=== PATIENT | female | born 2000 | race Caucasian/White ===

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

== ENCOUNTER 2019-04-10 05:30 | Inpatient (IN) | payer OTHER, MEDICAID ==
[2019-04-10] VITALS (16 sets, daily range): BP systolic 111–160; BP diastolic 58–103
[~2019-04-10] VITALS: Ht 154.9 cm; Wt 69.7 kg
[~2019-04-10 05:30] MED LIST changes: +IBUP-1773 PO
--- NOTE | 2019-04-10 05:30 | NUR ---
KATHRYN BOLDEN presented to unit via wheelchair from ED, accompanied by s/o, with c/o CONTRACTIONS. KATHRYN BOLDEN weighed, gowned, voided, and to bed. EFHM and TOCO applied, VS taken. KATHRYN BOLDEN oriented to bed controls, call light, TV, heat, and A/C controls.
[2019-04-10] MEDS ORDERED: D5 LR IV SOLUTION 1,000 ML IV ONE (05:41)
[2019-04-10] MEDS ORDERED: D5 LR IV SOLUTION 1,000 ML IV SCH (05:43)
[2019-04-10] MEDS ORDERED: MINERAL OIL CONCENTRATE 99.9% 15 ML UDC TOP PRN (05:45)
--- OUTSIDE RECORDS SUMMARY | 2019-04-10 05:54 | XMS REPORT ---
Author Author NARA CASTRO Organization [facility] Address [address] [place] [address] Care Team Providers Care Volleyball Commentator Name Role Phone NARA ACSTRO Unavailable PROBLEMS Type Condition ICD9-CM Code YIG64-NE Code Onset Dates Condition Status SNOMED Code Problem Tobacco use disorder F17.200 Active 245970286 Problem Gastroesophageal reflux disease, esophagitis presence not specified K21.9 Active 249085244 Problem Mild intermittent asthma without complication J45.20 Active 324500021 Problem Generalized anxiety disorder F41.1 Active 46797009 Problem Vaginal discharge N89.8 Active 596497681 Problem Irritable mood R45.4 Active 74660693 Problem Marijuana use F12.10 Active 91638735 Problem Bipolar disorder, in partial remission, most recent episode hypomanic F31.71 Active 366772687 Problem Dysthymic disorder F34.1 Active 49558956 ALLERGIES No Known Allergies ENCOUNTERS Encounter Location Date Diagnosis [place] [address] [id number] [id number] April, Dental examination Z01.20 [facility] [address] [id number][place] [id number] Nov, [facility] [address] [id number][place] [id number] Nov, Generalized anxiety disorder F41.1 and Other mental disorders complicating the puerperium O99.345 [place] [address] [facility] [id number][place] [id number] Nov, Vaginal discharge N89.8 [place] [address] [facility] [id number][place] [id number] Nov, Irritable mood R45.4 and Bipolar disorder, in partial remission, most recent episode hypomanic F31.[address] [id number][place] [id number] Nov, [facility] [id number][place] [id number] Oct, Dysthymic disorder F34.1 and Irritable mood R45.4 [facility] [address] [place] [address]- [address] Oct, [place] [address] [place] [id number] [place] [address]56- 7026 Oct, [place] [address] [place] [id number] [place] [address] 84489- 4729 Sep, care and examination Z39.2 and Encounter for Depo -Provera contraception Z30.42 [place] [address] [place] [id number] [place] [address] 07182- 3395 Sep, [place] [address] [place] [id number] [place] [address] 20759- 2457 Aug, [place] [address] [place] [id number] [place] [address] 01971- 7531 Aug, hemorrhage, unspecified type O72.1 and Marijuana use F12.10 [place] [address] [place] [id number] [place] [address] 77840- 2795 Aug, Third trimester Z34.93 and 39 weeks gestation of Z3A.39 [facility] [id number][place] [id number] Aug, Third trimester Z34.93 ; 38 weeks gestation of Z3A.38 and High risk teen in third trimester O09.[address] [id number], [place] [id number] Jul, Normal first in second trimester Z34.02 [facility] Reina0 [facility] [id number][place] [address] Jul, Normal in third trimester Z34.93 and 36 weeks gestation of Z3A.36 [place] [id number], [place] [id number] Jul, [facility] [id number] [place] [id number] Jul, [facility] [address] [facility] [address] [id number], [place] [address] Jul, Third trimester Z34.93 ; High risk teen in third trimester O09.893 and 34 weeks gestation of Z3A.34 [facility] [address] [facility] [address] [id number], [place] [id number] Jun, Encounter for immunization Z23 ; Third trimester Z34.93 and 32 weeks gestation of Z3A.32 [facility] [id number] [place] [id number] Jun, [facility] [id number] [place] [address] [id number] April, [facility] [address] [place] [id number] [place] [address] [id number] April, Normal first in second trimester Z34.02 and 20 weeks gestation of Z3A.20 [place] [address] [place] [id number] [place] [address] 36320- 5506 Mar, Normal first in second trimester Z34.02 [facility] [address]00565100[address] [id number] Mar, [facility] [id number] [place] [address] 79128- 4413 Mar, [facility] [address] [place] [address] [id number] [place] [address] 63458- 2546 Mar, 16 weeks gestation of Z3A.16 and Normal first in second trimester Z34.02 [facility] [address] [facility] [address] [id number], [place] [id number] Jan, Normal first confirmed, first trimester Z34.01 ; Diarrhea, unspecified R19.7 and Nausea with vomiting, unspecified R11.2 [facility] [id number] [place] [address] [id number] Jan, [facility] [address] [id number], [place] [phone] Jan, [facility] [id number] [place] [address] [id number] Jan, Normal first confirmed, first trimester Z34.01 ; 13 weeks gestation of Z3A.13 ; Other specified bacterial agents as the cause of diseases classified elsewhere B96.89 ; Acute vaginitis N76.0 and Tobacco use affecting in first trimester, antepartum O99.331 [facility] [place] [address] [id number], [place] [id number] Nov, [facility] [id number] [place] [address] [id number] Sep, Generalized abdominal pain R10.84 and Intractable vomiting with nausea, unspecified vomiting type R11.2 [facility] [id number] [place] [address] [id number] Sep, [facility] [address] [id number], [place] [id number] Sep, Epigastric pain R10.13 [facility] [address] [id number], [place] [id number] Aug, Right upper quadrant abdominal pain R10.11 [facility] [address] [id number], [place] [id number] Jul, [facility] [address] [id number], [place] [id number] Jun, Diarrhea, unspecified R19.7 and Nausea with vomiting, unspecified R11.2 [facility] [address] [id number], [place] [id number] May, Epigastric pain R10.13 [facility] [address] [id number] [place] [address] [id number] May, Epigastric pain R10.13 [facility] [place] [id number] [place] [address] [id number] May, Epigastric pain R10.13 and Heart palpitations R00.2 [facility] [address] [id number], [place] [id number] April, [address] [place] [address] [phone] April, Fatigue R53.83 and Epigastric pain R10.13 [address] [place] [address] [id number] 17 Jan, 2016 GE (gastroenteritis) K52.9 and Acute upper respiratory infection, unspecified J06.9 [place] [id number] [place] [address] [id number] Jan, Sore throat J02.9 and Fever R50.9 [place] [id number] [place] [address] [id number] Dec, Encounter for initial prescription of contraceptive pills Z30.011 [place] [id number] [place] [address] [id number] Nov, Wheezing R06.2 ; Coughing R05 ; Spasmodic cough R05 ; Fever R50.9 and Post -nasal drip R09.[id number] [place] [id number] Oct, Nausea R11.0 ; Vomiting R11.10 and Fever R50.9 [place] [id number] [place] [address] [id number] Oct, Laryngitis J04.0 ; Encounter for immunization Z23 and Cough R05 [place] [id number] [place] [address] [id number] Sep, Encounter for immunization Z23 ; Sinusitis, acute frontal J01.10 and Acute laryngitis J04.[id number] [place] [address] [id number] Jul, Sore throat 462 ; Fever 780.60 and Cough 786.2 [address] [place] [address] [id number] Jun, GARDASIL (HPV) DX V04.89 [place] [id number] [place] [address] [id number] May, Esophageal reflux 530.81 and GARDASIL (HPV) DX V04.89 [facility] [place] [address] [facility] [address] [id number], [place] [id number] April, Pharyngitis 462 and Bronchitis 490 [facility] [address] [facility] [id number], [place] [address]- [address] Mar, [facility] [address] [facility] [id number], [place] [address]- [address]68 Mar, [facility] [address] [facility] [id number], [place] [address]- 8100 Sep, [facility] [address] [facility] [id number], [place] [address]- 5944 Sep, [facility] [address] [place] [id number], [place] [address]- [address]24 Jun, [facility] [address] [place] [address] [id number], [place] [address]- 6347 Jun, [facility] [address] [place] [address] [id number], [place] [address]- 5809 April, [facility] [address] [id number], [place] [address]- 7771 April, [facility] [address] [place] [address] [id number], [place] [address]- 4856 Aug, [facility] [address] [facility] [id number], [place] [address]- 8258 Aug, [facility] [address] [place] [address] [id number], [place] [address]- [address]20 19 Aug, 2013 [facility] [address] [id number], [place] [address]- 94[address] 07 Aug, 2013 [facility] [address] [place] [address] [id number], [place] [address]- 9553 Jul, [facility] [address] [id number], [place] [address]- 7111 Mar, [facility] [address] [facility] [id number] [place] [address]- 2546 Mar, [facility] [address] [id number], [place] [address]- [address] Dec, [facility] [address] [id number], [place] [address]- 2546 Oct, [facility] [address] [id number], [place] [address]- 2546 Oct, [facility] [address] [facility] [id number], [place] [address]- 2546 Jul, [facility] [address]00565100[place], [place] [address] May, IMMUNIZATIONS Vaccine Route Administration Date Status DEPO PROVERA (150 MG/ML) IM Intramuscular Sep 30, 2017 Administered SOCIAL HISTORY Never Assessed REASON FOR VISIT 6 week post fu--[facility] PLAN OF CARE Activity Details Follow Up 1 Year with Ambrose COPELAND Reason: VITAL SIGNS Height 62 in 2017-09-30 Weight 136.5 lbs 2017-09-30 Temperature 98.1 degrees Fahrenheit 2017-09-30 Heart Rate 76 bpm 2017-09-30 Respiratory Rate 18 2017-09-30 BMI 24.96 kg/m2 2017-09-30 Blood pressure systolic 118 mmHg 2017-09-30 Blood pressure diastolic 82 mmHg 2017-09-30 MEDICATIONS Medication Instructions Dosage Frequency Start Date End Date Duration Status - Orally Once a day 1 tablet 24h Not-Taking RESULTS Name Result Date Reference Range TEST, URINE (IN HOUSE) 2017-09-30 RESULTS negative Lot # [id number] Control + Exp date 01/01/19 PROCEDURES Procedure Date Ordered Result Body Site URINE TEST Sep 30, 2017 DEPO PROVERA (150 MG/ML) Sep 30, 2017 THER/PROPH/DIAG INJ, SC/IM Sep 30, 2017 INSTRUCTIONS MEDICATIONS ADMINISTERED No Known Medications MEDICAL (GENERAL) HISTORY Type Description Date Medical History Esophageal reflux Medical History Asthma Medical History Chronic Constipation Medical History Lactose Intolerance Medical History Hematologic Disorder High Platelets Medical History [place] Medical History Bronchitis Medical History Anemia Medical History Hives Surgical History cholecystectomy ([facility]) 08/21/16 Hospitalization History childbirth
--- OUTSIDE RECORDS SUMMARY | 2019-04-10 05:54 | XMS REPORT ---
Author Author Migration, Doctor Organization [facility] Address Unknown Phone Unavailable Care Team Providers Care Certified Medicine Aide Name Role Phone Migration, Doctor Unavailable Unavailable PROBLEMS Type Condition ICD9-CM Code TSY96-PC Code Onset Dates Condition Status SNOMED Code Problem Marijuana use F12.10 Active 97905297 Problem Irritable mood R45.4 Active 37242404 Problem Dysthymic disorder F34.1 Active 69460225 Problem Tobacco use disorder F17.200 Active 811943748 Problem Lumbago with sciatica, right side M54.41 Active 448382374805617 Problem Gastroesophageal reflux disease, esophagitis presence not specified K21.9 Active 659803256 Problem Other chronic pain G89.29 Active 95775147 Problem Mild intermittent asthma without complication J45.20 Active 471877774 Problem Bipolar disorder, in partial remission, most recent episode hypomanic F31.71 Active 233733697 Problem Vaginal discharge N89.8 Active 389584305 Problem Generalized anxiety disorder F41.1 Active 23758857 Problem Lumbago with sciatica, left side M54.42 Active 843978205 ALLERGIES No Information ENCOUNTERS Encounter Location Date Diagnosis [address] [address] Mar, [address] [address] Jan, Supervision of other normal Z34.80 ; 34 weeks gestation of Z3A.34 and Spontaneous ecchymoses R23.[address] [address] Jan, Supervision of other normal Z34.80 ; 31 weeks gestation of Z3A.31 ; Other chronic pain G89.29 ; Lumbago with sciatica, right side M54.41 and Lumbago with sciatica, left side M54.[address] [address] Jan, Supervision of other normal Z34.80 and Encounter [facility]23 [facility] [address] [place] [address] 08 Jan, 2019 Supervision of other normal Z34.80 ; Low lying placenta NOS or without hemorrhage, second trimester O44.42 and 27 weeks gestation of Z3A.27 [facility] [address] [place] [address] 08 Jan, 2019 Supervision of other normal Z34.80 ; 27 weeks gestation of Z3A.27 and Low lying placenta NOS or without hemorrhage, second trimester O44.42 [facility] [id number] [place] [address] Dec, [address] [place] [phone] Nov, [facility] [address] [id number][place] [id number] April, Dental examination Z01.20 [facility] [address] [place] [id number] Nov, [facility] [address] [id number][place] [id number] Nov, Generalized anxiety disorder F41.1 and Other mental disorders complicating the puerperium O99.345 [facility] [address] [id number][place] [id number] Nov, Vaginal discharge N89.8 [facility] [id number] [place] [id number] Nov, Irritable mood R45.4 and Bipolar disorder, in partial remission, most recent episode hypomanic F31.71 [facility] [address] [address] [id number][place] [id number] Nov, [facility] [address] [id number][place] [id number] Oct, Dysthymic disorder F34.1 and Irritable mood R45.4 [facility] [id number] [place] [address] Oct, [facility] [id number] [address] Oct, [facility] [id number] [place] [address] Sep, care and examination Z39.2 and Encounter for Depo -Provera contraception Z30.42 [facility] [id number] [place] [address] Sep, [facility] [id number] [place] [address] Aug, [facility] [id number] [place] [address] Aug, hemorrhage, unspecified type O72.1 and Marijuana use F12.10 [facility] [id number] [place] [address] Aug, Third trimester Z34.93 and 39 weeks gestation of Z3A.39 [place] [address] [facility] [id number][place] [id number] Aug, Third trimester Z34.93 ; 38 weeks gestation of Z3A.38 and High risk teen in third trimester O09.893 [facility] [address] [id number][place] [id number] Jul, Normal first in second trimester Z34.02 [facility] [address] [id number][place] [id number] Jul, Normal in third trimester Z34.93 and 36 weeks gestation of Z3A.36 [facility] [address] [id number] [id number] Jul, [facility] [address] [id number] Jul, [facility] [address] [id number], [place] [id number] Jul, Third trimester Z34.93 ; High risk teen in third trimester O09.893 and 34 weeks gestation of Z3A.34 [facility] [address] [facility] [id number][place] [id number] Jun, Encounter for immunization Z23 ; Third trimester Z34.93 and 32 weeks gestation of Z3A.32 [facility] [id number][place] [id number] Jun, [facility] [id number] [place] [id number] April, [facility] [id number] [place] [id number] April, Normal first in second trimester Z34.02 and 20 weeks gestation of Z3A.20 [facility] [address] [address] Mar, Normal first in second trimester Z34.02 [facility] [address] [place] [id number] Mar, [facility] [id number] [place] [address] Mar, [facility] [id number] [place] [address] Mar, 16 weeks gestation of Z3A.16 and Normal first in second trimester Z34.02 [facility] [address] [id number], [place] [id number] Jan, Normal first confirmed, first trimester Z34.01 ; Diarrhea, unspecified R19.7 and Nausea with vomiting, unspecified R11.2 [facility] [id number], [place] [id number] Jan, [facility] [address] [id number] Jan, [facility] [address]100[place] [id number] Jan, Normal first confirmed, first trimester Z34.01 ; 13 weeks gestation of Z3A.13 ; Other specified bacterial agents as the cause of diseases classified elsewhere B96.89 ; Acute vaginitis N76.0 and Tobacco use affecting in first trimester, antepartum O99.331 [facility] [id number] [place] [id number] Nov, [facility] [id number] [place] [address] [id number] Sep, Generalized abdominal pain R10.84 and Intractable vomiting with nausea, unspecified vomiting type R11.2 [facility] [id number] [place] [address] [id number] Sep, [facility] [id number] [place] [address] [id number] Sep, Epigastric pain R10.13 [facility] [id number] [place] [address] [id number] Aug, Right upper quadrant abdominal pain R10.[address] [id number], [place] [id number] Jul, [facility] [id number] [place] [address] [id number] Jun, Diarrhea, unspecified R19.7 and Nausea with vomiting, unspecified R11.2 [facility] [id number] [place] [address] [id number] May, Epigastric pain R10.13 [facility] [id number] [place] [address] [id number] May, Epigastric pain R10.13 [facility] [id number] [place] [address] [id number] May, Epigastric pain R10.13 and Heart palpitations R00.2 [facility] [id number] [place] [address] [id number] April, [facility] [id number] [place] [address] [phone] April, Fatigue R53.83 and Epigastric pain R10.13 [facility] [id number] [place] [address] [id number] Jan, GE (gastroenteritis) K52.9 and Acute upper respiratory infection, unspecified J06.[address] [place] [address] [id number] Jan, Sore throat J02.9 and Fever R50.9 [id number] [place] [address] [id number] Dec, Encounter for initial prescription of contraceptive pills Z30.011 [id number] [place] [address] [id number] Nov, Wheezing R06.2 ; Coughing R05 ; Spasmodic cough R05 ; Fever R50.9 and Post -nasal drip R09.[id number] [place] [address] [id number] Oct, Nausea R11.0 ; Vomiting R11.10 and Fever R50.9 [id number] [place] [address] [id number] Oct, Laryngitis J04.0 ; Encounter for immunization Z23 and Cough R05 [id number] [place] [address] [id number] Sep, Encounter for immunization Z23 ; Sinusitis, acute frontal J01.10 and Acute laryngitis J04.[id number] [place] [address] [id number] Jul, Sore throat 462 ; Fever 780.60 and Cough 786.[address] [place] [address] [id number] Jun, GARDASIL (HPV) DX V04.89 [id number] [place] [address] [id number] May, Esophageal reflux 530.81 and GARDASIL (HPV) DX V04.[id number] [place] [address] [id number] April, Pharyngitis 462 and Bronchitis 490 [facility] [id number] [place] [address] [id number] Mar, [facility] [address] [address] [place] [place] [address] Mar, [facility] [address] [id number] [place] [address] Sep, [facility] [place] [facility] [address] [id number] [place] [address] Sep, [facility] [address] [id number] [place] [address] Jun, [facility] [place] [facility] [address] [id number] [place] [address]- [address] Jun, [facility] [address] [id number] [place] [address] April, [facility] [place] [facility] [address] [id number] [place] [address] April, [facility] [address] [id number] [place] [address] Aug, [facility] [address] [id number] [place] [address] Aug, [facility] [place] [facility] [address] [id number] [place] [address] Aug, [facility] [place] [facility] [address] [id number] [place] [address] 07 Aug, 2013 [facility] [place] [facility] [address] [id number] [place] [address] Jul, [facility] [place] [facility] [address] [id number] [place] [address] Mar, [facility] [place] [facility] [address] [id number] [place] [address]- [address] Mar, [facility] [place] [facility] [address] [id number] [place] [address]- [address] Dec, [facility] [place] [facility] [address] [id number] [place] [address] Oct, [facility] [address] [facility] [id number] [place] [address] Oct, [facility] [address] [facility] [id number], [place] [address] Jul, [facility] [address] [facility] [id number] [place] [address] May, IMMUNIZATIONS No Known Immunizations SOCIAL HISTORY Never Assessed REASON FOR VISIT [facility] [place] [place] PLAN OF CARE VITAL SIGNS MEDICATIONS Medication Instructions Dosage Frequency Start Date End Date Duration Status Flonase 50 mcg/actuation 1 sprays by Nasal route 2 times per day in each nostril Sep, Active Zithromax Z-[place] 250 mg 2 tablet by Oral route 1 time per day for 1 days then take 1 tab daily on days 2-5 Sep, Active Albuterol Sulfate 2.5 mg /3 mL (0.083 %) 1 Each by Inhalation route every 4 hours for cough and wheeze for 7 days for wheezing or cough Jun, Active Bactrim DS 800-160 mg 1 tablet by Oral route 2 times per day for 10 day(s) Aug, Active Azithromycin 250 mg 2 Tablet by Oral route on day 1 then take 1 daily for 4 days Jun, Active Polytrim 0.1-10,000 %-unit/mL instill 2 drops into right eye by ophthalmic route every 4-6 hours for 7 day(s) Jul, Active Nitrofurantoin Macrocrystal 100 mg 1 capsule by Oral route 2 times per day for 10 day(s) Aug, Active Zantac 300 mg 1 tablet by Oral route 1 time per day at bedtime Aug, Active Pyridium 200 mg 1 tablet by Oral route 3 times per day for 3 day(s) Take iNEWiTih meals for bladder pain Aug, Active cetirizine 10 mg 1 tablet by Oral route 1 daily Sep, Active Albuterol Sulfate 90 mcg/actuation 2 puffs by Inhalation route every 4-6 hours as needed PRN cough or wheezing Jul, Active RESULTS No Results PROCEDURES No Known procedures INSTRUCTIONS MEDICATIONS ADMINISTERED No Known Medications MEDICAL (GENERAL) HISTORY Type Description Date Medical History Esophageal reflux Medical History Asthma Medical History Chronic Constipation Medical History Lactose Intolerance Medical History Hematologic Disorder High Plate[place] Medical History [place] Medical History Bronchitis Medical History Anemia Medical History Hives Medical History neuropathy Surgical History cholecystectomy ([facility]) 08/21/16 Hospitalization History childbirth
--- OUTSIDE RECORDS SUMMARY | 2019-04-10 05:54 | XMS REPORT ---
Author Author NARA CASTRO Organization [facility] Address [address] [place] [address] Care Team Providers Care Prescriptionist Name Role Phone NARA CASTRO Unavailable PROBLEMS Type Condition ICD9-CM Code GEL23-WB Code Onset Dates Condition Status SNOMED Code Problem Tobacco use disorder F17.200 Active 977662119 Problem Gastroesophageal reflux disease, esophagitis presence not specified K21.9 Active 327843779 Problem Mild intermittent asthma without complication J45.20 Active 507381568 Problem Generalized anxiety disorder F41.1 Active 15349626 Problem Vaginal discharge N89.8 Active 176780456 Problem Irritable mood R45.4 Active 47768572 Problem Marijuana use F12.10 Active 04884947 Problem Bipolar disorder, in partial remission, most recent episode hypomanic F31.71 Active 411447796 Problem Dysthymic disorder F34.1 Active 14175492 ALLERGIES No Known Allergies ENCOUNTERS Encounter Location Date Diagnosis [facility] [address] [facility] [id number] [place] [id number] Nov, [facility] [address] [id number] [place] [id number] Nov, Generalized anxiety disorder F41.1 and Other mental disorders complicating the puerperium O99.345 [facility] [address] [facility] [id number] [place]AV[place] [id number] Nov, Vaginal discharge N89.8 [facility] [place] [address] [facility] [id number] HAVEN[place] [id number] Nov, Irritable mood R45.4 and Bipolar disorder, in partial remission, most recent episode hypomanic F31.71 [facility] [address] [facility] [id number] [place] [id number] Nov, [facility] [place] [address] [facility] [id number] [place]AV[place] [phone] Oct, Dysthymic disorder F34.1 and Irritable mood R45.4 [place] [address] [place] [address] [id number] [place] [address] 91300- 9261 Oct, [facility] [id number] [place] [address] 11466- 9654 Oct, [place] [address] [place] [id number] [place] [address] 50786- 3129 Sep, care and examination Z39.2 and Encounter for Depo -Provera contraception Z30.42 [place] [address] [place] [id number] [place] [address] 07758- 0821 Sep, [place] [address] [place] [id number] [place] [address] 55607- 6873 Aug, [place] [address] [place] [id number] [place] [address] 92841- 6024 Aug, hemorrhage, unspecified type O72.1 and Marijuana use F12.10 [place] [address] [place] [id number] [place] [address] 13258- 9731 Aug, Third trimester Z34.93 and 39 weeks gestation of Z3A.[address] [id number] [place] [address]231487 Aug, Third trimester Z34.93 ; 38 weeks gestation of Z3A.38 and High risk teen in third trimester O09.[address] [id number] [place] [id number] Jul, Normal first in second trimester Z34.[address] [id number] [place]AV[place] [id number] Jul, Normal in third trimester Z34.93 and 36 weeks gestation of Z3A.36 [facility] [address]00565100[place] [id number] Jul, [facility] [address] [id number] [id number] Jul, [facility] [place] [address] [facility] [address] [id number] [place]AV[place] [id number] Jul, Third trimester Z34.93 ; High risk teen in third trimester O09.893 and 34 weeks gestation of Z3A.[address] [facility] [address] [id number] [place] [id number] Jun, Encounter for immunization Z23 ; Third trimester Z34.93 and 32 weeks gestation of Z3A.32 [facility] [address] [id number] [place] [id number] Jun, [facility] [address] [id number] [place] [id number] April, [facility] [place] [address] [place] [address] [id number] [place] [id number] April, Normal first in second trimester Z34.02 and 20 weeks gestation of Z3A.20 [facility] [address]00565100[place] [address] Mar, Normal first in second trimester Z34.02 [facility] [place] [id number] [place] [id number] Mar, [facility] [address]00565100[place] [address]- [address]84 Mar, [facility] [address]00565100[place] 651433[address] 9979 Mar, 16 weeks gestation of Z3A.16 and Normal first in second trimester Z34.02 [facility] [place] [address] [facility] [address] [id number] [place] [id number] Jan, Normal first confirmed, first trimester Z34.01 ; Diarrhea, unspecified R19.7 and Nausea with vomiting, unspecified R11.2 [facility] [address] [id number] [place] [id number] Jan, [facility] [id number] RIVER, [place] [id number] Jan, [facility] [id number] [place] [id number] Jan, Normal first confirmed, first trimester Z34.01 ; 13 weeks gestation of Z3A.13 ; Other specified bacterial agents as the cause of diseases classified elsewhere B96.89 ; Acute vaginitis N76.0 and Tobacco use affecting in first trimester, antepartum O99.331 [facility] [id number] [place] [address] [id number] Nov, [facility] [id number] [place] [address] [id number] Sep, Generalized abdominal pain R10.84 and Intractable vomiting with nausea, unspecified vomiting type R11.2 [facility] [id number] [place] [address] [id number] Sep, [facility] [id number] [place] [address] [id number] Sep, Epigastric pain R10.13 [facility] [id number] [place] [address] [id number] Aug, Right upper quadrant abdominal pain R10.11 [place] [address] [facility] [id number] [place] 039594522 Jul, [facility] [id number] [place] [address] [id number] Jun, Diarrhea, unspecified R19.7 and Nausea with vomiting, unspecified R11.2 [facility] [id number] [place] [address] [id number] May, Epigastric pain R10.13 [facility] [id number] [place] [address] [id number] May, Epigastric pain R10.13 [facility] [id number] [place] [address] [id number] May, Epigastric pain R10.13 and Heart palpitations R00.2 [facility] [id number] [place] [address] [id number] April, [facility] [address] [id number] [place] [address] [id number] April, Fatigue R53.83 and Epigastric pain R10.13 [address]00565100[place] [id number] 17 Jan, 2016 GE (gastroenteritis) K52.9 and Acute upper respiratory infection, unspecified J06.9 [place] [id number] [place] [address] [id number] Jan, Sore throat J02.9 and Fever R50.9 [place] [id number] [place] [address] [id number] Dec, Encounter for initial prescription of contraceptive pills Z30.011 [place] [id number] [place] [address] [id number] Nov, Wheezing R06.2 ; Coughing R05 ; Spasmodic cough R05 ; Fever R50.9 and Post -nasal drip R09.[address] [id number] [place] [id number] Oct, Nausea R11.0 ; Vomiting R11.10 and Fever R50.9 [address] [place] [address] [id number] Oct, Laryngitis J04.0 ; Encounter for immunization Z23 and Cough R05 [place] [id number] [place] [address] [id number] Sep, Encounter for immunization Z23 ; Sinusitis, acute frontal J01.10 and Acute laryngitis J04.[address] [id number] [place] [id number] Jul, Sore throat 462 ; Fever 780.60 and Cough 786.[address] [place] [address] [id number] Jun, GARDASIL (HPV) DX V04.89 [address] [place] [address] [id number] May, Esophageal reflux 530.81 and GARDASIL (HPV) DX V04.[id number] [place] [address] [id number] April, Pharyngitis 462 and Bronchitis 490 [facility] [address] [id number] [place] [address]- 7948 14 Mar, 2015 [facility] [address] [id number] [place] [address]- 3498 Mar, [facility] [address] [id number] [place] [address]- 3546 Sep, [facility] [place] [facility] [address] [id number] [place] [address]- 3744 Sep, [facility] [address] [id number] [place] [address]- 1008 Jun, [facility] [place] [facility] [address] [id number] [place] [address]- 3850 Jun, [facility] [address] [id number] [place] [address]- 0021 April, [facility] [place] [facility] [address] [id number] [place] [address]- 6329 April, [facility] [address] [id number] [place] [address]- 1668 Aug, [facility] [place] [facility] [address] [id number] [place] [address]- 0446 Aug, [facility] [address] [id number] [place] [address]- 1528 Aug, [facility] [place] [facility] [address] [id number] [place] [address]- 3939 07 Aug, 2013 [facility] [place] [facility] [address] [id number] [place] [address]- 9430 Jul, [facility] [place] [facility] [address] [id number] [place] [address]- 4572 Mar, [facility] [place] [facility] [address] [id number] [place] [address]- 1321 08 Mar, 2013 [facility] [place] [facility] [address] [facility] [id number] [place] [address] 2546 Dec, [facility] [address] [facility] [id number], [place] [address]- 4764 Oct, [facility] [address] [facility] [id number], [place] [address] 2546 Oct, [facility] [address] [facility] [id number] [address]- 2542 Jul, [facility] [address] [facility] [id number][place] [address]- 0605 May, IMMUNIZATIONS No Known Immunizations SOCIAL HISTORY Never Assessed REASON FOR VISIT OB f/u Ghanshyam BANKS PLAN OF CARE Activity Details Follow Up 1 Week Reason: VITAL SIGNS Height 62 in 2017-08-07 Weight 154.8 lbs 2017-08-07 Heart Rate 88 bpm 2017-08-07 Respiratory Rate 18 2017-08-07 BMI 28.313 kg/m2 2017-08-07 Blood pressure systolic 112 mmHg 2017-08-07 Blood pressure diastolic 68 mmHg 2017-08-07 MEDICATIONS Medication Instructions Dosage Frequency Start Date End Date Duration Status - Orally Once a day 1 tablet 24h Active RESULTS No Results PROCEDURES No Known procedures INSTRUCTIONS MEDICATIONS ADMINISTERED No Known Medications MEDICAL (GENERAL) HISTORY Type Description Date Medical History Esophageal reflux Medical History Asthma Medical History Chronic Constipation Medical History Lactose Intolerance Medical History Hematologic Disorder High Platelets Surgical History cholecystectomy ([facility]) 08/21/16 Hospitalization History childbirth
--- OUTSIDE RECORDS SUMMARY | 2019-04-10 05:54 | XMS REPORT ---
Author Author EMILIANO Wilcox [facility] Address [address] [place] [address] Care Team Providers Care Tilt Tray Driver Name Role Phone EMILIANO Wilcox Unavailable PROBLEMS Type Condition ICD9-CM Code TGX41-UE Code Onset Dates Condition Status SNOMED Code Problem Tobacco use disorder F17.200 Active 902426761 Problem Gastroesophageal reflux disease, esophagitis presence not specified K21.9 Active 491636287 Problem Mild intermittent asthma without complication J45.20 Active 466210875 Problem Generalized anxiety disorder F41.1 Active 92234722 Problem Vaginal discharge N89.8 Active 311242211 Problem Irritable mood R45.4 Active 51190250 Problem Marijuana use F12.10 Active 00695285 Problem Bipolar disorder, in partial remission, most recent episode hypomanic F31.71 Active 870140860 Problem Dysthymic disorder F34.1 Active 20702329 ALLERGIES No Known Allergies ENCOUNTERS Encounter Location Date Diagnosis [id number] [place] [address] [id number] April, Dental examination Z01.20 [facility] [address] [id number], [place] [id number] Nov, [address] [id number], [place] [id number] Nov, Generalized anxiety disorder F41.1 and Other mental disorders complicating the puerperium O99.[address] [id number] [place] [address] [id number] Nov, Vaginal discharge N89.[address] [id number], [place] [id number] Nov, Irritable mood R45.4 and Bipolar disorder, in partial remission, most recent episode hypomanic F31.[address] [id number], [place] [id number] Nov, [address] [id number], [place] [id number] Oct, Dysthymic disorder F34.1 and Irritable mood R45.4 [facility] [address]00565100[place] [address]- 3260 Oct, [facility] [id number] [place] [address] 04969- 0120 Oct, [facility] [address] [id number] [place] [address] 05297- 1869 Sep, care and examination Z39.2 and Encounter for Depo -Provera contraception Z30.42 [place] [id number] [place] [address] 80698- 5780 Sep, [place] [address] [id number] [place] [address] 88379- 6990 Aug, [place] [address] [id number] [place] [address] 22724- 5359 Aug, hemorrhage, unspecified type O72.1 and Marijuana use F12.10 [place] [address]00565100[place], [place] [address]- 0783 Aug, Third trimester Z34.93 and 39 weeks gestation of Z3A.[address] [id number], [place] [id number] Aug, Third trimester Z34.93 ; 38 weeks gestation of Z3A.38 and High risk teen in third trimester O09.[address] [id number], [place] [id number] Jul, Normal first in second trimester Z34.[address] [id number], [place] [id number] Jul, Normal in third trimester Z34.93 and 36 weeks gestation of Z3A.36 [facility] [address] [facility] [place] [id number], [place] [id number] Jul, [facility] [id number] [place] [address] [id number] Jul, [facility] [address] [facility] [address] [id number], [place] [id number] Jul, Third trimester Z34.93 ; High risk teen in third trimester O09.893 and 34 weeks gestation of Z3A.34 [facility] [address] [facility] [address] [id number], [place] [id number] Jun, Encounter for immunization Z23 ; Third trimester Z34.93 and 32 weeks gestation of Z3A.32 [facility] [id number], [place] [id number] Jun, [facility] [address] [place] [address] [id number] April, [facility] [place] [address] [id number] [place] [address] [id number] April, Normal first in second trimester Z34.02 and 20 weeks gestation of Z3A.20 [place] [id number] [place] [address] 11014- 5446 Mar, Normal first in second trimester Z34.02 [facility] [place]00565100[place], [place] [id number] Mar, [facility] [id number] [place] [address] 71587- 3846 Mar, [facility] [id number] [place] [address] 23263- 2546 Mar, 16 weeks gestation of Z3A.16 and Normal first in second trimester Z34.02 [facility] [address] [facility] [address] [id number], [place] [id number] Jan, Normal first confirmed, first trimester Z34.01 ; Diarrhea, unspecified R19.7 and Nausea with vomiting, unspecified R11.2 [facility] [address] [place] [address] [id number], [place] [id number] Jan, [facility] [address] [id number], [place] [id number] Jan, [facility] [place] [id number], [place] [id number] Jan, Normal first confirmed, first trimester Z34.01 ; 13 weeks gestation of Z3A.13 ; Other specified bacterial agents as the cause of diseases classified elsewhere B96.89 ; Acute vaginitis N76.0 and Tobacco use affecting in first trimester, antepartum O99.331 [facility] [place] [address] [id number], [place] [id number] Nov, [facility] [place] [id number] [place] [address] [id number] Sep, Generalized abdominal pain R10.84 and Intractable vomiting with nausea, unspecified vomiting type R11.2 [facility] [id number], [place] [id number] Sep, [facility] [id number], [place] [id number] Sep, Epigastric pain R10.13 [facility] [id number], [place] [id number] Aug, Right upper quadrant abdominal pain R10.11 [facility] [address] [id number], [place] [id number] Jul, [facility] [address] [facility] [place] [id number], [place] [id number] Jun, Diarrhea, unspecified R19.7 and Nausea with vomiting, unspecified R11.2 [facility] [address] [id number], [place] [id number] May, Epigastric pain R10.13 [facility] [address] [id number], [place] [id number] May, Epigastric pain R10.13 [facility] [address] [id number], [place] [id number] May, Epigastric pain R10.13 and Heart palpitations R00.2 [facility] [place]00565100[place], [place] [id number] April, [place] [id number] [place] [address] [id number] April, Fatigue R53.83 and Epigastric pain R10.13 [place] [id number] [place] [address] [id number] Jan, GE (gastroenteritis) K52.9 and Acute upper respiratory infection, unspecified J06.9 [place] [id number] [place] [address] [id number] Jan, Sore throat J02.9 and Fever R50.9 [place] [id number] [place] [address] [id number] Dec, Encounter for initial prescription of contraceptive pills Z30.011 [place] [id number] [place] [address] [id number] Nov, Wheezing R06.2 ; Coughing R05 ; Spasmodic cough R05 ; Fever R50.9 and Post -nasal drip R09.[id number] [place] [address] [id number] Oct, Nausea R11.0 ; Vomiting R11.10 and Fever R50.[address] [place] [address] [id number] Oct, Laryngitis J04.0 ; Encounter for immunization Z23 and Cough R05 [place] [id number] [place] [address] [id number] Sep, Encounter for immunization Z23 ; Sinusitis, acute frontal J01.10 and Acute laryngitis J04.[id number] [place] [address] [id number] Jul, Sore throat 462 ; Fever 780.60 and Cough 786.[address] [place] [address] [id number] Jun, GARDASIL (HPV) DX V04.89 [place] [id number] [place] [address] [id number] 02 Andrés, 2015 Esophageal reflux 530.81 and GARDASIL (HPV) DX V04.[address] [facility] [place] [address] [facility] [address] [id number], [place] [id number] April, Pharyngitis 462 and Bronchitis 490 [facility] [address] [facility] [id number][place] [address]- 2755 Mar, [facility] [address] [facility] [id number] [place] [address] 30360- 5253 Mar, [facility] [address] [facility] [id number][place] [address]- 0375 Sep, [facility] [address] [facility] [id number] [place] [address] 20242- 1619 Sep, [facility] [address] [id number] [address]- 8064 Jun, [facility] [id number] [place] [address] 41515- 4069 Jun, [facility] [address] [id number] [address]- 8544 April, [facility] [address] [place] [address] 79758- 1877 April, [facility] [address] [id number], [place] [address]- 7638 Aug, [facility] [address]00565100[place], [place] [address]- 8503 22 Aug, 2013 [facility] [address] [id number], [place] [address]- 2477 19 Aug, 2013 [facility] [address]00565100[place], [place] [address]- 4064 07 Aug, 2013 [facility] [address] [id number], [place] [address]- 4759 Jul, [facility] [address] [id number], [place] [address]- 5750 Mar, [facility] [address] [facility] [id number][place] [address]- 2546 Mar, [facility] [address] [facility] [id number][place] [address]- 2546 Dec, [facility] [address] [facility] [id number][place] [address]- 2546 Oct, [facility] [address] [id number] [address]- 2546 Oct, [facility] [address] [facility] [id number][place] [address]- 2546 Jul, [facility] [address] [id number] [address] 2546 May, IMMUNIZATIONS No Known Immunizations SOCIAL HISTORY Never Assessed REASON FOR VISIT pain PLAN OF CARE Activity Details Follow Up 1 Week Reason:1 hour restorative 4 &5 VITAL SIGNS Height 62 in 2018-04-10 Blood pressure systolic 120 mmHg 2018-04-10 Blood pressure diastolic 71 mmHg 2018-04-10 MEDICATIONS Medication Instructions Dosage Frequency Start Date End Date Duration Status Clonazepam 0.5 MG Orally twice a day 1/2 tablet 12h 15 Nov, 2017 30 days Not-Taking Zoloft 25 MG Orally Once a day 1 tablet 24h 08 Oct, 2017 30 day(s) Not -Taking - Orally Once a day 1 tablet 24h Not-Taking RESULTS No Results PROCEDURES Procedure Date Ordered Result Body Site LTD ORAL EVALUATION - PROBLEM FOCUS April 10, 2018 INTRAORL-PERIAPICAL 1 FILM [id number] April 10, 2018 BITEWING - SINGLE FILM April 10, 2018 INSTRUCTIONS MEDICATIONS ADMINISTERED No Known Medications MEDICAL (GENERAL) HISTORY Type Description Date Medical History Esophageal reflux Medical History Asthma Medical History Chronic Constipation Medical History Lactose Intolerance Medical History Hematologic Disorder High Platelets Medical History [place] Medical History Bronchitis Medical History Anemia Medical History Hives Surgical History cholecystectomy ([facility]) 08/21/16 Hospitalization History childbirth
--- OUTSIDE RECORDS SUMMARY | 2019-04-10 05:55 | XMS REPORT ---
Author Author STEVEN STERN [facility] Address [address] [place] [address] Care Team Providers Care Sales Support Advisor Name Role Phone STEVEN STERN Unavailable PROBLEMS Type Condition ICD9-CM Code [id number] Code Onset Dates Condition Status SNOMED Code Problem Marijuana use F12.10 Active 48494285 Problem Gastroesophageal reflux disease, esophagitis presence not specified K21.9 Active 485944592 Problem Mild intermittent asthma without complication J45.20 Active 956306549 Problem Tobacco use disorder F17.200 Active 815337032 ALLERGIES No Known Allergies SOCIAL HISTORY Never Assessed PLAN OF CARE Activity Details Follow Up 4 Weeks w/ Dr. Castillo Reason:ob VITAL SIGNS Height 62 in 2017-02-11 Weight 131.6 lbs 2017-02-11 Heart Rate 72 bpm 2017-02-11 Respiratory Rate 16 2017-02-11 BMI 24.07 kg/m2 2017-02-11 Blood pressure systolic 110 mmHg 2017-02-11 Blood pressure diastolic 68 mmHg 2017-02-11 MEDICATIONS Medication Instructions Dosage Frequency Start Date End Date Duration Status Metronidazole 250 MG Orally Twice a day 1 tablet 12h 13 Jan, 2017 Jan, 07 days Active RESULTS Name Result Date Reference Range TSH () 2017-02-11 TSH 2.120 0.450-4.500 HIV ANTIGEN/ANTIBODY 2017-02-11 HIV Screen 4th Generation wRfx Non Reactive Non Reactive CBC 2017-02-11 WBC 12.7 3.4-10.8 RBC 4.07 3.77-5.28 Hemoglobin 12.7 11.1-15.9 Hematocrit 37.2 34.0-46.6 MCV 91 79-97 MCH 31.2 26.6-33.0 MCHC 34.1 31.5-35.7 RDW 13.1 12.3-15.4 Platelets 430 150-379 Neutrophils 69 Lymphs 21 Monocytes 7 Eos 3 Basos 0 Immature Cells Neutrophils (Absolute) 8.8 1.4-7.0 Lymphs (Absolute) 2.6 0.7-3.1 Monocytes(Absolute) 0.9 0.1-0.9 Eos (Absolute) 0.4 0.0-0.4 Baso (Absolute) 0.0 0.0-0.2 Immature Granulocytes 0 Immature Grans (Abs) 0.0 0.0-0.1 NRBC Hematology Comments: ANTIBODY SCREEN 2017-02-11 Antibody Screen Negative Negative BLOOD TYPE/RH FACTOR 2017-02-11 ABO Grouping O Rh Factor Positive RUBELLA ANTIBODIES, IgG 2017-02-11 Rubella Antibodies, IgG <0.90 Immune >0.99 CULTURE, URINE 2017-02-11 Urine Culture, Routine Final report Result 1 No growth CMP 2017-02-11 Glucose, Serum 75 65-99 BUN 5 6-20 Creatinine, Serum 0.40 0.57-1.00 eGFR If NonAfricn Am 153 >59 eGFR If Africn Am 176 >59 BUN/Creatinine Ratio 13 8-20 Sodium, Serum 135 134-144 Potassium, Serum 4.3 3.5-5.2 Chloride, Serum 100 96-106 Carbon Dioxide, Total 16 18-29 Calcium, Serum 9.3 8.7-10.2 Protein, Total, Serum 6.9 6.0-8.5 Albumin, Serum 4.5 3.5-5.5 Globulin, Total 2.4 1.5-4.5 A/G Ratio 1.9 1.2-2.2 Bilirubin, Total <0.2 0.0-1.2 Alkaline Phosphatase, S 72 43-101 AST (SGOT) 13 0-40 ALT (SGPT) 11 0-32 TEST, URINE (IN HOUSE) 2017-02-11 RESULTS positive Lot # [id number] Control + Exp date 08/31/18 TRICHOMONAS (IN HOUSE) 2017-02-11 TRICHOMONAS negative Control + Lot # [id number] Exp date 08/2017 UA OB DIP (IN HOUSE) 2017-02-11 Glucose neg Protein neg URINE DRUG SCREEN (IN HOUSE) 2017-02-11 Lot # [id number] Exp date 03/31/2018 Control + COCAINE neg AMPH neg MTD neg THC positive OPIATE neg BENZO neg PCP neg BAR neg OXY neg MAMP neg TCA neg BUP neg MDMA neg BACTERIAL VAGINOSIS (IN HOUSE) 2017-02-11 RESULTS positive Control + Lot # [id number] Exp date 08/2017 TSH () 2017-02-11 TSH 2.120 0.450-4.500 HIV ANTIGEN/ANTIBODY 2017-02-11 HIV Screen 4th Generation wRfx Non Reactive Non Reactive CBC 2017-02-11 WBC 12.7 3.4-10.8 RBC 4.07 3.77-5.28 Hemoglobin 12.7 11.1-15.9 Hematocrit 37.2 34.0-46.6 MCV 91 79-97 MCH 31.2 26.6-33.0 MCHC 34.1 31.5-35.7 RDW 13.1 12.3-15.4 Platelets 430 150-379 Neutrophils 69 Lymphs 21 Monocytes 7 Eos 3 Basos 0 Neutrophils (Absolute) 8.8 1.4-7.0 Lymphs (Absolute) 2.6 0.7-3.1 Monocytes(Absolute) 0.9 0.1-0.9 Eos (Absolute) 0.4 0.0-0.4 Baso (Absolute) 0.0 0.0-0.2 Immature Granulocytes 0 Immature Grans (Abs) 0.0 0.0-0.1 ANTIBODY SCREEN 2017-02-11 Antibody Screen Negative Negative BLOOD TYPE/RH FACTOR 2017-02-11 ABO Grouping O Rh Factor Positive RUBELLA ANTIBODIES, IgG 2017-02-11 Rubella Antibodies, IgG <0.90 Immune >0.99 CULTURE, GENITAL 2017-02-11 Genital Culture, Routine Final report Result 1 CULTURE, URINE 2017-02-11 Urine Culture, Routine Final report Result 1 No growth CMP 2017-02-11 Glucose, Serum 75 65-99 BUN 5 6-20 Creatinine, Serum 0.40 0.57-1.00 eGFR If NonAfricn Am 153 >59 eGFR If Africn Am 176 >59 BUN/Creatinine Ratio 13 8-20 Sodium, Serum 135 134-144 Potassium, Serum 4.3 3.5-5.2 Chloride, Serum 100 96-106 Carbon Dioxide, Total 16 18-29 Calcium, Serum 9.3 8.7-10.2 Protein, Total, Serum 6.9 6.0-8.5 Albumin, Serum 4.5 3.5-5.5 Globulin, Total 2.4 1.5-4.5 A/G Ratio 1.9 1.2-2.2 Bilirubin, Total <0.2 0.0-1.2 Alkaline Phosphatase, S 72 43-101 AST (SGOT) 13 0-40 ALT (SGPT) 11 0-32 Ultrasound : OB, Early <14 WEEKS 2017-02-15 GC/CHLAM PROBE (STATE) 2017-02-11 CHLAMYDIA GC SYPHILIS (STATE) 2017-02-11 HEP B SURFACE ANTIGEN (STATE) 2017-02-11 HEP B ANTIBODY HEP B ANTIBODY (RML) HEP B ANTIBODY (STATE) PROCEDURES Procedure Date Ordered Result Body Site BLOOD TYPING, ABO February 11, 2017 BLOOD TYPING, RH (D) February 11, 2017 KIM VAG, DNA, DIR PROBE February 11, 2017 COMPLETE CBC W/AUTO DIFF WBC February 11, 2017 No Charge February 11, 2017 URINE CULTURE/COLONY COUNT February 11, 2017 RUBELLA ANTIBODY February 11, 2017 CULTURE, BACTERIA, OTHER February 11, 2017 TRICHOMONAS ASSAY W/OPTIC February 11, 2017 RBC ANTIBODY SCREEN February 11, 2017 HIV-1 AG W/HIV-1 & HIV-2 AB February 11, 2017 COMPREHEN METABOLIC PANEL February 11, 2017 ASSAY THYROID STIM HORMONE February 11, 2017 URINE TEST February 11, 2017 URINE-NO MICRO February 11, 2017 VENIPUNCT, ROUTINE* February 11, 2017 IMMUNIZATIONS No Known Immunizations MEDICAL (GENERAL) HISTORY Type Description Date Medical History Esophageal reflux Medical History Asthma Medical History Chronic Constipation Medical History Lactose Intolerance Medical History Hematologic Disorder High Platelets Surgical History cholecystectomy ([facility]) 08/21/16 Hospitalization History childbirth
--- OUTSIDE RECORDS SUMMARY | 2019-04-10 05:55 | XMS REPORT ---
Author Author NARA CASTRO Organization [facility] Address [address] [place] [address] Care Team Providers Care Clock Mechanic Name Role Phone NARA CASTRO Unavailable PROBLEMS Type Condition ICD9-CM Code [id number] Code Onset Dates Condition Status SNOMED Code Problem Tobacco use disorder F17.200 Active 251116070 Problem Gastroesophageal reflux disease, esophagitis presence not specified K21.9 Active 206369714 Problem Mild intermittent asthma without complication J45.20 Active 959121043 Problem Generalized anxiety disorder F41.1 Active 31572354 Problem Vaginal discharge N89.8 Active 515794628 Problem Irritable mood R45.4 Active 59449055 Problem Marijuana use F12.10 Active 04436881 Problem Bipolar disorder, in partial remission, most recent episode hypomanic F31.71 Active 220773471 Problem Dysthymic disorder F34.1 Active 92238374 ALLERGIES No Known Allergies ENCOUNTERS Encounter Location Date Diagnosis [facility] [address] [facility] [id number] [id number] Nov, [facility] [address] [id number] [id number] Nov, Generalized anxiety disorder F41.1 and Other mental disorders complicating the puerperium O99.345 [facility] [address] [facility] [id number][place] [id number] Nov, Vaginal discharge N89.8 [facility] [address] [facility] [id number] [id number] Nov, Irritable mood R45.4 and Bipolar disorder, in partial remission, most recent episode hypomanic F31.71 [facility] [address] [facility] [id number][place] [id number] Nov, [facility] [address] [facility] [id number][place] [id number] Oct, Dysthymic disorder F34.1 and Irritable mood R45.4 [place] [id number] [place] [address] Oct, [facility] [id number] [place] [address] Oct, [place] [id number] [place] [address] Sep, care and examination Z39.2 and Encounter for Depo -Provera contraception Z30.42 [place] [id number] [place] [address] Sep, [place] [id number] [place] [address] Aug, [place] [id number] [place] [address] Aug, hemorrhage, unspecified type O72.1 and Marijuana use F12.10 [place] [id number] [place] [address] Aug, Third trimester Z34.93 and 39 weeks gestation of Z3A.[address] [id number][place] [id number] Aug, Third trimester Z34.93 ; 38 weeks gestation of Z3A.38 and High risk teen in third trimester O09.[address] [id number][place] [id number] Jul, Normal first in second trimester Z34.[address] [id number][place] [id number] Jul, Normal in third trimester Z34.93 and 36 weeks gestation of Z3A.36 [facility] [address]00565[address] [id number] Jul, [facility] [address] [id number] [id number] Jul, [facility] [address] [facility] [address] [id number][place] [id number] Jul, Third trimester Z34.93 ; High risk teen in third trimester O09.893 and 34 weeks gestation of Z3A.[address] [facility] [address] [id number] [place] [id number] Jun, Encounter for immunization Z23 ; Third trimester Z34.93 and 32 weeks gestation of Z3A.32 [facility] [address] [id number][place] [id number] Jun, [facility] [address] [id number][place] [id number] April, [facility] [address] [id number][place] [id number] April, Normal first in second trimester Z34.02 and 20 weeks gestation of Z3A.20 [facility] [address]00565100[place] [address] Mar, Normal first in second trimester Z34.02 [facility] [id number] [id number] Mar, [facility] [address]00565100[place] [address] Mar, [facility] [address]65100[place] [address] Mar, 16 weeks gestation of Z3A.16 and Normal first in second trimester Z34.02 [facility] [address] [facility] [address] [id number] [place] [id number] Jan, Normal first confirmed, first trimester Z34.01 ; Diarrhea, unspecified R19.7 and Nausea with vomiting, unspecified R11.2 [facility] [address] [id number][place] [id number] Jan, [facility] [id number], [place] [id number] Jan, [facility] [id number][place] [id number] Jan, Normal first confirmed, first trimester Z34.01 ; 13 weeks gestation of Z3A.13 ; Other specified bacterial agents as the cause of diseases classified elsewhere B96.89 ; Acute vaginitis N76.0 and Tobacco use affecting in first trimester, antepartum O99.331 [facility] [id number] [place] [id number] Nov, [facility] [id number] [place] [id number] Sep, Generalized abdominal pain R10.84 and Intractable vomiting with nausea, unspecified vomiting type R11.2 [facility] [id number] [place] [id number] Sep, [facility] [id number] [place] [id number] Sep, Epigastric pain R10.13 [facility] [id number] [place] [id number] Aug, Right upper quadrant abdominal pain R10.11 [place] [address] [facility] [id number][place] [id number] Jul, [facility] [id number] [place] [id number] Jun, Diarrhea, unspecified R19.7 and Nausea with vomiting, unspecified R11.2 [facility] [id number] [place] [id number] May, Epigastric pain R10.13 [facility] [id number] [place] [id number] May, Epigastric pain R10.13 [facility] [id number] [place] [address] [id number] May, Epigastric pain R10.13 and Heart palpitations R00.2 [facility] [id number] [place] [address] [id number] April, [facility] [id number] [place] [id number] April, Fatigue R53.83 and Epigastric pain R10.13 [address]65100[place] [id number] 17 Jan, 2016 GE (gastroenteritis) K52.9 and Acute upper respiratory infection, unspecified J06.9 [place] [id number] [place] [id number] Jan, Sore throat J02.9 and Fever R50.9 [place] [id number] [place] [id number] Dec, Encounter for initial prescription of contraceptive pills Z30.011 [place] [id number] [place] [id number] Nov, Wheezing R06.2 ; Coughing R05 ; Spasmodic cough R05 ; Fever R50.9 and Post -nasal drip R09.[address] [id number][place] [id number] Oct, Nausea R11.0 ; Vomiting R11.10 and Fever R50.[address] [place] [address] [id number] Oct, Laryngitis J04.0 ; Encounter for immunization Z23 and Cough R05 [place] [id number] [place] [id number] Sep, Encounter for immunization Z23 ; Sinusitis, acute frontal J01.10 and Acute laryngitis J04.[address] [id number][place] [id number] Jul, Sore throat 462 ; Fever 780.60 and Cough 786.[address] [place] [address] [id number] Jun, GARDASIL (HPV) DX V04.89 [address] [place] [address] [id number] May, Esophageal reflux 530.81 and GARDASIL (HPV) DX V04.[id number] [place] [address] [id number] April, Pharyngitis 462 and Bronchitis 490 [facility] [address] [id number] [place] [address] 14 Mar, 2015 [facility] [address] [id number] [place] [address] Mar, [facility] [address] [id number] [place] [address] Sep, [facility] [place] [facility] [address] [id number] [place] [address] Sep, [facility] [address] [id number] [place] [address] Jun, [facility] [place] [facility] [address] [id number] [place] [address] Jun, [facility] [address] [id number] [place] [address] April, [facility] [place] [facility] [address] [id number] [place] [address] April, [facility] [address] [id number] [place] [address] Aug, [facility] [place] [facility] [address] [id number] [place] [address] Aug, [facility] [address] [id number] [place] [address] Aug, [facility] [place] [facility] [address] [id number] [place] [address]- [address] 07 Aug, 2013 [facility] [place] [facility] [address] [id number] [place] [address]- 16[address] Jul, [facility] [place] [facility] [address] [id number] [place] [address] 65[address] Mar, [facility] [place] [facility] [address] [id number] [place] [address]- [address] 08 Mar, 2013 [facility] [place] [facility] [address] [facility] [id number] [place] [address] Dec, [facility] [address] [facility] [id number] [address] Oct, [facility] [address] [facility] [id number] [place] [address] Oct, [facility] [address] [facility] [id number] [address] Jul, [facility] [address] [facility] [id number] [place] [address] May, IMMUNIZATIONS No Known Immunizations SOCIAL HISTORY Never Assessed REASON FOR VISIT OB f/u PLAN OF CARE Activity Details Follow Up 1 Week Reason: VITAL SIGNS Height 62 in 2017-07-24 Weight 153.1 lbs 2017-07-24 Temperature 97.9 degrees Fahrenheit 2017-07-24 Heart Rate 100 bpm 2017-07-24 Respiratory Rate 20 2017-07-24 BMI 28.002 kg/m2 2017-07-24 Blood pressure systolic 120 mmHg 2017-07-24 Blood pressure diastolic 68 mmHg 2017-07-24 MEDICATIONS Medication Instructions Dosage Frequency Start Date End Date Duration Status - Orally Once a day 1 tablet 24h Active RESULTS No Results PROCEDURES Procedure Date Ordered Result Body Site LAB NOT BILLED BY [facility] Jul 24, 2017 INSTRUCTIONS MEDICATIONS ADMINISTERED No Known Medications MEDICAL (GENERAL) HISTORY Type Description Date Medical History Esophageal reflux Medical History Asthma Medical History Chronic Constipation Medical History Lactose Intolerance Medical History Hematologic Disorder High Platelets Surgical History cholecystectomy ([facility]) 08/21/16 Hospitalization History childbirth
--- OUTSIDE RECORDS SUMMARY | 2019-04-10 05:55 | XMS REPORT ---
Author Author ROSA ALOK Organization [facility] Address [address] [place] [address] Care Team Providers Care Harvest Worker Fruit Name Role Phone JOYCELYN LEEHANY Unavailable PROBLEMS Type Condition ICD9-CM Code GQG00-MH Code Onset Dates Condition Status SNOMED Code Problem Tobacco use disorder F17.200 Active 686965818 Problem Gastroesophageal reflux disease, esophagitis presence not specified K21.9 Active 801586860 Problem Mild intermittent asthma without complication J45.20 Active 940612363 Problem Generalized anxiety disorder F41.1 Active 37544242 Problem Vaginal discharge N89.8 Active 410490996 Problem Irritable mood R45.4 Active 26182276 Problem Marijuana use F12.10 Active 12345677 Problem Bipolar disorder, in partial remission, most recent episode hypomanic F31.71 Active 457926059 Problem Dysthymic disorder F34.1 Active 29825285 ALLERGIES No Information ENCOUNTERS Encounter Location Date Diagnosis [place] [address] [id number] [id number] April, Dental examination Z01.20 [facility] [address] [id number], [place] [id number] Nov, [facility] [address] [id number], [place] [id number] Nov, Generalized anxiety disorder F41.1 and Other mental disorders complicating the puerperium O99.345 [facility] [address] [id number], [place] [address] Nov, Vaginal discharge N89.8 [facility] [address] [id number], [place] [id number] Nov, Irritable mood R45.4 and Bipolar disorder, in partial remission, most recent episode hypomanic F31.[address] [id number], [place] [id number] Nov, [address] [id number] [place] [address] [id number] Oct, Dysthymic disorder F34.1 and Irritable mood R45.4 [facility] [id number] [place] [address] 01127- 7531 Oct, [place] [address] [address]- [address]95 Oct, [place] [address] [address]- [address]148 Sep, care and examination Z39.2 and Encounter for Depo -Provera contraception Z30.42 [place] [id number] [place] [address] 19456- 2735 Sep, [place] [address] [address]- 6289 Aug, [place] [id number] [place] [address] 58551- 4868 Aug, hemorrhage, unspecified type O72.1 and Marijuana use F12.10 [place] [id number] [place] [address] 11960- 3445 Aug, Third trimester Z34.93 and 39 weeks gestation of Z3A.[address] [id number], [place] [id number] Aug, Third trimester Z34.93 ; 38 weeks gestation of Z3A.38 and High risk teen in third trimester O09.[address] [id number] [place] [address] [id number] Jul, Normal first in second trimester Z34.02 [facility] [place] [address] [place] [address] [id number], [place] [id number] Jul, Normal in third trimester Z34.93 and 36 weeks gestation of Z3A.36 [place] [address] [place] [address] [id number], [place] [address] Jul, [facility] [id number] [place] [address] [id number] Jul, [facility] [place] [address] [id number], [place] [address] Jul, Third trimester Z34.93 ; High risk teen in third trimester O09.893 and 34 weeks gestation of Z3A.34 [facility] [address] [id number], [place] [id number] Jun, Encounter for immunization Z23 ; Third trimester Z34.93 and 32 weeks gestation of Z3A.32 [facility] [id number], [place] [id number] Jun, [facility] [place] [id number] [place] [address] [id number] April, [facility] [place] [id number] [place] [address] [id number] April, Normal first in second trimester Z34.02 and 20 weeks gestation of Z3A.20 [facility] [id number] [place] [address] 57844- 1366 Mar, Normal first in second trimester Z34.02 [facility] [place] [address]00565100[place] [id number] Mar, [facility] [id number] [place] [address] 53833- 9988 Mar, [facility] [id number] [place] [address] 04572- 2546 Mar, 16 weeks gestation of Z3A.16 and Normal first in second trimester Z34.02 [facility] [place] [address] [id number], [place] [id number] Jan, Normal first confirmed, first trimester Z34.01 ; Diarrhea, unspecified R19.7 and Nausea with vomiting, unspecified R11.2 [facility] [id number], [place] [id number] Jan, [facility] [place] [id number], [place] [id number] Jan, [facility] [id number] [place] [address] [id number] Jan, Normal first confirmed, first trimester Z34.01 ; 13 weeks gestation of Z3A.13 ; Other specified bacterial agents as the cause of diseases classified elsewhere B96.89 ; Acute vaginitis N76.0 and Tobacco use affecting in first trimester, antepartum O99.331 [facility] [place] [address] [id number], [place] [id number] Nov, [facility] [place] [id number] [place] [address] [id number] Sep, Generalized abdominal pain R10.84 and Intractable vomiting with nausea, unspecified vomiting type R11.2 [facility] [address] [id number] [place] [address] [id number] Sep, [facility] [id number] [place] [address] [id number] Sep, Epigastric pain R10.13 [facility] [address] [id number], [place] [id number] Aug, Right upper quadrant abdominal pain R10.11 [facility] [place] [id number], [place] [id number] Jul, [facility] [address] [id number], [place] [id number] Jun, Diarrhea, unspecified R19.7 and Nausea with vomiting, unspecified R11.2 [facility] [place] [address] [id number], [place] [phone] May, Epigastric pain R10.13 [facility] [id number] [place] [address] [id number] May, Epigastric pain R10.13 [facility] [place] [id number] [place] [address] [id number] May, Epigastric pain R10.13 and Heart palpitations R00.2 [facility] [id number] [place] [address] [id number] April, [address] [place] [address] [id number] April, Fatigue R53.83 and Epigastric pain R10.13 [address] [place] [address] [id number] 17 Jan, 2016 GE (gastroenteritis) K52.9 and Acute upper respiratory infection, unspecified J06.9 [place] [id number] [place] [address] [id number] Jan, Sore throat J02.9 and Fever R50.9 [place] [id number] [place] [address] [id number] Dec, Encounter for initial prescription of contraceptive pills Z30.011 [place] [id number] [place] [address] [id number] Nov, Wheezing R06.2 ; Coughing R05 ; Spasmodic cough R05 ; Fever R50.9 and Post -nasal drip R09.[id number] [place] [address] [id number] Oct, Nausea R11.0 ; Vomiting R11.10 and Fever R50.9 [place] [id number] [place] [address] [id number] Oct, Laryngitis J04.0 ; Encounter for immunization Z23 and Cough R05 [place] [id number] [place] [address] [id number] Sep, Encounter for immunization Z23 ; Sinusitis, acute frontal J01.10 and Acute laryngitis J04.[id number] [place] [address] [id number] Jul, Sore throat 462 ; Fever 780.60 and Cough 786.[address] [place] [address] [id number] Jun, GARDASIL (HPV) DX V04.89 [place] [id number] [place] [address] [id number] May, Esophageal reflux 530.81 and GARDASIL (HPV) DX V04.89 [facility] [place] [address] [id number], [place] [id number] April, Pharyngitis 462 and Bronchitis 490 [facility] [address] [facility] [id number], [place] [address]- 99[address] Mar, [facility] [address] [facility] [id number], [place] [address]- 6473 Mar, [facility] [address] [facility] [id number], [place] [address]- 1359 Sep, [facility] [address] [facility] [id number] [place] [address] 90811- 5293 Sep, [facility] [address] [id number], [place] [address]- 5770 Jun, [facility] [address] [id number], [place] [address]- 3515 Jun, [facility] [address] [id number], [place] [address]- 5876 April, [facility] [address] [id number], [place] [address]- 4937 April, [facility] [address] [id number], [place] [address]- 7906 Aug, [facility] [address] [facility] [id number], [place] [address]- 7842 Aug, [facility] [address] [id number], [place] [address]- 7016 Aug, [facility] [address] [id number], [place] [address]- 5730 07 Aug, 2013 [facility] [address] [id number], [place] [address]- 3269 Jul, [facility] [address] [id number], [place] [address]- 5369 Mar, [facility] [address] [facility] [id number], [place] [address]- 4952 Mar, [facility] [address] [id number], [place] 902682- 2921 Dec, [facility] [address]00565100[place], [place] [address]- 5857 Oct, [facility] [address] [id number], [place] [address]- 0538 Oct, [facility] [address]00565100[place], [place] [address]- 1067 Jul, [facility] [address] [id number], [place] [address]- 5489 May, IMMUNIZATIONS No Known Immunizations SOCIAL HISTORY Never Assessed REASON FOR VISIT PLAN OF CARE VITAL SIGNS MEDICATIONS No Known Medications RESULTS No Results PROCEDURES No Known procedures [...]
--- OUTSIDE RECORDS SUMMARY | 2019-04-10 05:55 | XMS REPORT ---
Author Author NARA CASTRO Organization [facility] Address [address] [place] [address] Care Team Providers Care Farmworker Rice Name Role Phone NARA CASTRO Unavailable PROBLEMS Type Condition ICD9-CM Code YYP99-BC Code Onset Dates Condition Status SNOMED Code Problem Tobacco use disorder F17.200 Active 459270656 Problem Gastroesophageal reflux disease, esophagitis presence not specified K21.9 Active 884618440 Problem Mild intermittent asthma without complication J45.20 Active 455064776 Problem Generalized anxiety disorder F41.1 Active 63138959 Problem Vaginal discharge N89.8 Active 136553189 Problem Irritable mood R45.4 Active 50561699 Problem Marijuana use F12.10 Active 61157361 Problem Bipolar disorder, in partial remission, most recent episode hypomanic F31.71 Active 547559663 Problem Dysthymic disorder F34.1 Active 21147969 ALLERGIES No Information ENCOUNTERS Encounter Location Date Diagnosis [facility] [address] [facility] [id number][place] [id number] Nov, [place] [facility] [address] [id number], [place] [id number] Nov, Generalized anxiety disorder F41.1 and Other mental disorders complicating the puerperium O99.345 [place] [facility] [address] [address] [id number], [place] [id number] Nov, Vaginal discharge N89.8 [facility] [address] [facility] [id number], [place] [id number] Nov, Irritable mood R45.4 and Bipolar disorder, in partial remission, most recent episode hypomanic F31.71 [place] [address] [facility] [id number], [place] [id number] Nov, [facility] [address] [address] [id number], [place] [id number] Oct, Dysthymic disorder F34.1 and Irritable mood R45.4 [place] [address] [place] [address] 46285- 1057 Oct, [facility] [id number] [place] [address] 28706- 0645 Oct, [place] [address] [id number] [place] [address] 27577- 2117 Sep, care and examination Z39.2 and Encounter for Depo -Provera contraception Z30.42 [place] [address] [id number] [place] [address] 47496- 8084 Sep, [place] [address] [id number] [place] [address] 13837- 4880 Aug, [place] [address] [address] [id number] [place] [address] 01376- 0175 Aug, hemorrhage, unspecified type O72.1 and Marijuana use F12.10 [place] [address] [place] [address] 19222- 4512 Aug, Third trimester Z34.93 and 39 weeks gestation of Z3A.[address] [id number], [place] [id number] Aug, Third trimester Z34.93 ; 38 weeks gestation of Z3A.38 and High risk teen in third trimester O09.[address] [id number], [place] [id number] Jul, Normal first in second trimester Z34.[address] [id number], [place] [id number] Jul, Normal in third trimester Z34.93 and [address]36 [facility] [id number], [place] [id number] Jul, [facility] [id number] [place] [address] [place] [id number] Jul, [facility] [address] [address] [id number] [place] [address] Jul, Third trimester Z34.93 ; High risk teen in third trimester O09.893 and 34 weeks gestation of Z3A.[address] [facility] [address] [id number] [place] 144[address] Jun, Encounter for immunization Z23 ; Third trimester Z34.93 and 32 weeks gestation of Z3A.32 [facility] [address] [id number], [place] [id number] Jun, [facility] [address] [id number], [place] [id number] April, [facility] [place] [address] [id number], [place] [id number] April, Normal first in second trimester Z34.02 and 20 weeks gestation of Z3A.20 [facility] [address]00565100[place], [place] [address]- [address]16 Mar, Normal first in second trimester Z34.02 [facility] [id number], [place] [id number] Mar, [facility] [address]00565100[place], [place] [address]- 2016 Mar, [facility] [address]00565100[place], [place] [address]- 2284 Mar, 16 weeks gestation of Z3A.16 and Normal first in second trimester Z34.02 [facility] [address] [id number] [place] [id number] Jan, Normal first confirmed, first trimester Z34.01 ; Diarrhea, unspecified R19.7 and Nausea with vomiting, unspecified R11.2 [facility] [address] [id number], [place] [id number] Jan, [facility] [id number], [place] [id number] Jan, [facility] [id number], [place] [id number] Jan, Normal first confirmed, first trimester Z34.01 ; 13 weeks gestation of Z3A.13 ; Other specified bacterial agents as the cause of diseases classified elsewhere B96.89 ; Acute vaginitis N76.0 and Tobacco use affecting in first trimester, antepartum O99.331 [facility] [id number] [place] [address] [id number] Nov, [facility] [id number] [place] [address] [id number] Sep, Generalized abdominal pain R10.84 and Intractable vomiting with nausea, unspecified vomiting type R11.2 [facility] [id number] [place] [address] [id number] Sep, [facility] [id number] [place] [address] [id number] Sep, Epigastric pain R10.13 [facility] [id number] [place] [address] [id number] Aug, Right upper quadrant abdominal pain R10.[address] [id number], [place] [id number] Jul, [facility] [id number] [place] [address] [id number] Jun, Diarrhea, unspecified R19.7 and Nausea with vomiting, unspecified R11.2 [facility] [id number] [place] [address] [id number] May, Epigastric pain R10.13 [facility] [id number] [place] [address] [id number] May, Epigastric pain R10.13 [facility] [id number] [place] [address] [id number] May, Epigastric pain R10.13 and Heart palpitations R00.2 [facility] [id number] [place] [address] [id number] April, [facility] [id number] [place] [address] [id number] April, Fatigue R53.83 and Epigastric pain R10.13 [address] [place] [address] [id number] Jan, GE (gastroenteritis) K52.9 and Acute upper respiratory infection, unspecified J06.9 [place] [id number] [place] [address] [id number] Jan, Sore throat J02.9 and Fever R50.9 [place] [address] [place] [address] [id number] Dec, Encounter for initial prescription of contraceptive pills Z30.011 [place] [address] [place] [address] [id number] Nov, Wheezing R06.2 ; Coughing R05 ; Spasmodic cough R05 ; Fever R50.9 and Post -nasal drip R09.[address] [id number], [place] [id number] Oct, Nausea R11.0 ; Vomiting R11.10 and Fever R50.9 [place] [address] [place] [address] [id number] Oct, Encounter for immunization Z23 ; Laryngitis J04.0 and Cough R05 [place] [id number] [place] [address] [id number] Sep, Encounter for immunization Z23 ; Sinusitis, acute frontal J01.10 and Acute laryngitis J04.[address] [id number], [place] [id number] Jul, Sore throat 462 ; Fever 780.60 and Cough 786.2 [address] [place] [address] [id number] Jun, GARDASIL (HPV) DX V04.89 [place] [address] [place] [address] [id number] May, Esophageal reflux 530.81 and GARDASIL (HPV) DX V04.[address] [id number], [place] [id number] April, Pharyngitis 462 and Bronchitis 490 [facility] [address] [id number] [place] [address]- 6082 Mar, [facility] [address] [id number] [place] [address]- 0307 Mar, [facility] [address] [id number] [place] [address]- 9156 Sep, [facility] [address] [id number] [place] [address]- 1190 Sep, [facility] [address] [id number] [place] [address]- 6212 Jun, [facility] [address] [id number] [place] [address]- 2942 Jun, [facility] [address] [id number] [place] [address]- 6060 April, [facility] [address] [id number] [place] [address]- 3440 April, [facility] [address] [id number] [place] [address]- 3568 Aug, [facility] [place] [facility] [address] [id number] [place] [address]- 8647 Aug, [facility] [address] [id number] [place] [address]- 4990 Aug, [facility] [place] [facility] [address] [id number] [place] [address]- 0586 07 Aug, 2013 [facility] [place] [facility] [address] [id number] [place] [address]- 1747 Jul, [facility] [place] [facility] [address] [id number] [place] [address]- 0555 Mar, [facility] [place] [facility] [address] [id number] [place] [address]- 6935 Mar, [facility] [place] [facility] [address] [facility] [id number] [place] [address]- 1080 Dec, [facility] [address] [facility] [id number], [place] [address]- 4458 Oct, [facility] [address] [id number], [place] [address]- 5420 Oct, [facility] [address] [facility] [id number], [place] [address]- 5131 Jul, [facility] [address] [facility] [id number][place] 08[address]23- 0445 May, IMMUNIZATIONS No Known Immunizations SOCIAL HISTORY Never Assessed REASON FOR VISIT PLAN OF CARE VITAL SIGNS MEDICATIONS Unknown Medications RESULTS No Results PROCEDURES No Known procedures INSTRUCTIONS MEDICATIONS ADMINISTERED No Known Medications MEDICAL (GENERAL) HISTORY Type Description Date Medical History Esophageal reflux Medical History Asthma Medical History Chronic Constipation Medical History Lactose Intolerance Medical History Hematologic Disorder High Platelets Surgical History cholecystectomy ([facility]) 08/21/16 Hospitalization History childbirth
--- OUTSIDE RECORDS SUMMARY | 2019-04-10 05:56 | XMS REPORT ---
Author Author ALOK LEE Organization [facility] Address [address] [place] [address] Care Team Providers Care Plant Operations Coordinator Name Role Phone ROSA ALOK Unavailable PROBLEMS Type Condition ICD9-CM Code [id number] Code Onset Dates Condition Status SNOMED Code Problem Marijuana use F12.10 Active 20610276 Problem Gastroesophageal reflux disease, esophagitis presence not specified K21.9 Active 969648654 Problem Mild intermittent asthma without complication J45.20 Active 242265442 Problem Tobacco use disorder F17.200 Active 459384789 ALLERGIES No Known Allergies SOCIAL HISTORY Never Assessed PLAN OF CARE Activity Details Follow Up 4 Weeks Reason: VITAL SIGNS Height 62 in 2017-04-02 Weight 134.0 lbs 2017-04-02 Temperature 99.1 degrees Fahrenheit 2017-04-02 Heart Rate 98 bpm 2017-04-02 Respiratory Rate 18 2017-04-02 BMI 24.509 kg/m2 2017-04-02 Blood pressure systolic 114 mmHg 2017-04-02 Blood pressure diastolic 68 mmHg 2017-04-02 MEDICATIONS Medication Instructions Dosage Frequency Start Date End Date Duration Status - Orally Once a day 1 tablet 24h Active RESULTS No Results PROCEDURES Procedure Date Ordered Result Body Site URINE-NO MICRO April 02, 2017 IMMUNIZATIONS No Known Immunizations MEDICAL (GENERAL) HISTORY Type Description Date Medical History Esophageal reflux Medical History Asthma Medical History Chronic Constipation Medical History Lactose Intolerance Medical History Hematologic Disorder High Platelets Surgical History cholecystectomy ([facility]) 08/21/16 Hospitalization History childbirth
--- OUTSIDE RECORDS SUMMARY | 2019-04-10 05:56 | XMS REPORT ---
Author Author CASIE CASIANO [facility] Address [address] [place] [address] Care Team Providers Care Database Modeler Name Role Phone CASIE CASIANO Unavailable PROBLEMS Type Condition ICD9-CM Code [id number] Code Onset Dates Condition Status SNOMED Code Problem Tobacco use disorder F17.200 Active 377558404 Problem Gastroesophageal reflux disease, esophagitis presence not specified K21.9 Active 741454762 Problem Mild intermittent asthma without complication J45.20 Active 747732651 Problem Generalized anxiety disorder F41.1 Active 56693726 Problem Vaginal discharge N89.8 Active 087794865 Problem Irritable mood R45.4 Active 53210565 Problem Marijuana use F12.10 Active 77660119 Problem Bipolar disorder, in partial remission, most recent episode hypomanic F31.71 Active 900205635 Problem Dysthymic disorder F34.1 Active 18897731 ALLERGIES No Known Allergies ENCOUNTERS Encounter Location Date Diagnosis [facility] [address] [id number][place] [id number] Nov, [address] [facility] [address] [id number], [place] [id number] Nov, Generalized anxiety disorder F41.1 and Other mental disorders complicating the puerperium O99.345 [facility] [address] [facility] [facility] [id number][place] [id number] Nov, Vaginal discharge N89.8 [address] [facility] [id number], [place] [id number] Nov, Irritable mood R45.4 and Bipolar disorder, in partial remission, most recent episode hypomanic F31.71 [facility] [address] [facility] [id number], [place] [id number] Nov, [address] [id number], [place] [id number] Oct, Dysthymic disorder F34.1 and Irritable mood R45.4 [id number] [place] [address] 02671- 2690 Oct, [place] [id number] [place] [address] 78495- 9641 Oct, [place] [id number] [place] [address] 31958- 2008 Sep, care and examination Z39.2 and Encounter for Depo -Provera contraception Z30.42 [place] [id number] [place] [address] 48283- 2190 Sep, [place] [id number] [place] [address] 24677- 3983 Aug, [place] [id number] [place] [address] 27678- 0490 Aug, hemorrhage, unspecified type O72.1 and Marijuana use F12.10 [place] [id number] [place] [address] 88162- 4731 Aug, Third trimester Z34.93 and 39 weeks gestation of Z3A.[address] [id number], [place] [id number] Aug, Third trimester Z34.93 ; 38 weeks gestation of Z3A.38 and High risk teen in third trimester O09.[address] [id number], [place] [id number] Jul, Normal first in second trimester Z34.[address] [id number], [place] [address] Jul, Normal in third trimester Z34.93 and 36 weeks gestation of Z3A.36 [facility] [address] [id number], [place] [id number] Jul, [facility] [address] [id number] [address] Jul, [facility] [address] [facility] [address] [id number], [place] [address] Jul, Third trimester Z34.93 ; High risk teen in third trimester O09.893 and 34 weeks gestation of Z3A.34 [facility] [address] [facility] [address] [id number], [place] [id number] Jun, Encounter for immunization Z23 ; Third trimester Z34.93 and 32 weeks gestation of Z3A.32 [facility] [place] [address] [id number], [place] [phone] Jun, [facility] [place] [address] [id number] [place] [address] [phone] April, [facility] [place] [id number], [place] [id number] April, Normal first in second trimester Z34.02 and 20 weeks gestation of Z3A.20 [facility] [address]00565100[place], [place] [address] 4[address] Mar, Normal first in second trimester Z34.02 [facility] [id number], [place] [id number] Mar, [facility] [address]00565100[place], [place] [address]50[address]- 1213 Mar, [facility] [address]00565100[place], [place] [address]40[address]- 7811 Mar, 16 weeks gestation of Z3A.16 and Normal first in second trimester Z34.02 [facility] [place] [address] [facility] [address] [id number], [place] [id number] Jan, Normal first confirmed, first trimester Z34.01 ; Diarrhea, unspecified R19.7 and Nausea with vomiting, unspecified R11.2 [facility] [place] [address] [id number], [place] [phone] Jan, [facility] [id number], [place] 46447[address]57 Jan, [facility] [id number], [place] 665539[address] Jan, Normal first confirmed, first trimester Z34.01 ; 13 weeks gestation of Z3A.13 ; Other specified bacterial agents as the cause of diseases classified elsewhere B96.89 ; Acute vaginitis N76.0 and Tobacco use affecting in first trimester, antepartum O99.331 [facility] [id number] [place] [address] [id number] Nov, [facility] [id number] [place] [address] [id number] Sep, Generalized abdominal pain R10.84 and Intractable vomiting with nausea, unspecified vomiting type R11.2 [facility] [id number] [place] [address] [phone] Sep, [facility] [id number] [place] [address] [phone] Sep, Epigastric pain R10.13 [facility] [id number] [place] [address] [id number] Aug, Right upper quadrant abdominal pain R10.[address] [id number], [place] 290386761 Jul, [facility] [id number], [place] [id number] Jun, Diarrhea, unspecified R19.7 and Nausea with vomiting, unspecified R11.2 [facility] [id number] [place] [address] [id number] May, Epigastric pain R10.13 [facility] [id number] [place] [address] [id number] May, Epigastric pain R10.13 [facility] [id number] [place] [address] [id number] May, Epigastric pain R10.13 and Heart palpitations R00.2 [facility] [id number] [place] [address] [id number] April, [facility] [id number] [place] [address] [id number] April, Fatigue R53.83 and Epigastric pain R10.13 [address] [place] [address] [id number] 17 Jan, 2016 GE (gastroenteritis) K52.9 and Acute upper respiratory infection, unspecified J06.9 [id number] [place] [address] [id number] Jan, Sore throat J02.9 and Fever R50.9 [id number] [place] [address] [phone] Dec, Encounter for initial prescription of contraceptive pills Z30.011 [id number] [place] [address] [id number] Nov, Wheezing R06.2 ; Coughing R05 ; Spasmodic cough R05 ; Fever R50.9 and Post -nasal drip R09.[id number] [place] [address] [id number] Oct, Nausea R11.0 ; Vomiting R11.10 and Fever R50.9 [address] [place] [address] [id number] Oct, Laryngitis J04.0 ; Encounter for immunization Z23 and Cough R05 [id number] [place] [address] [phone] Sep, Encounter for immunization Z23 ; Sinusitis, acute frontal J01.10 and Acute laryngitis J04.[address] [id number], [place] [id number] Jul, Sore throat 462 ; Fever 780.60 and Cough 786.[address] [place] [address] [id number] Jun, GARDASIL (HPV) DX V04.89 [id number] [place] [address] [id number] May, Esophageal reflux 530.81 and GARDASIL (HPV) DX V04.[id number] [place] [address] [id number] April, Pharyngitis 462 and Bronchitis 490 [facility] [address] [id number] [place] [address]- 9330 14 Mar, 2015 [facility] [address] [id number] [place] [address]- 6535 Mar, [facility] [address] [id number] [place] [address]- 8646 Sep, [facility] [place] [facility] [address] [id number] [place] [address]- 0466 Sep, [facility] [address] [id number] [place] [address]- 7086 Jun, [facility] [place] [facility] [address] [id number] [place] [address]- 8883 Jun, [facility] [address] [id number] [place] [address]- 8162 April, [facility] [address] [id number] [place] [address]- 5158 April, [facility] [address] [id number] [place] [address]- 9159 Aug, [facility] [place] [facility] [address] [id number] [place] [address]- 3108 Aug, [facility] [address] [id number] [place] [address]- 5468 Aug, [facility] [place] [facility] [address] [id number] [place] [address]- 8475 07 Aug, 2013 [facility] [place] [facility] [address] [id number] [place] [address]- 1797 Jul, [facility] [place] [facility] [address] [id number] [place] [address]- 4205 11 Mar, 2013 [facility] [place] [facility] [address] [id number] [place] [address]- 4483 08 Mar, 2013 [facility] [place] [facility] [address] [facility] [id number] [place] [address]- 1896 Dec, [facility] [address] [facility] [id number], [place] [address]- 4407 Oct, [facility] [address] [facility] [id number], [place] [address]- 9427 Oct, [facility] [address] [facility] [id number], [place] [address]- 8170 Jul, [facility] [address] [facility] [id number], [place] [address]- 5689 May, IMMUNIZATIONS No Known Immunizations SOCIAL HISTORY Never Assessed REASON FOR VISIT OB f/u bferrisma PLAN OF CARE Activity Details Follow Up 1 Week Reason:Dr. Boggs VITAL SIGNS Height 62 in 2017-07-31 Weight 154.6 lbs 2017-07-31 Temperature 99.2 degrees Fahrenheit 2017-07-31 Heart Rate 104 bpm 2017-07-31 Respiratory Rate 20 2017-07-31 BMI 28.277 kg/m2 2017-07-31 Blood pressure systolic 110 mmHg 2017-07-31 Blood pressure diastolic 60 mmHg 2017-07-31 MEDICATIONS Unknown Medications RESULTS No Results PROCEDURES Procedure Date Ordered Result Body Site URINE-NO MICRO Jul 31, 2017 INSTRUCTIONS MEDICATIONS ADMINISTERED No Known Medications MEDICAL (GENERAL) HISTORY Type Description Date Medical History Esophageal reflux Medical History Asthma Medical History Chronic Constipation Medical History Lactose Intolerance Medical History Hematologic Disorder High Platelets Surgical History cholecystectomy ([facility]) 08/21/16 Hospitalization History childbirth
--- OUTSIDE RECORDS SUMMARY | 2019-04-10 05:56 | XMS REPORT ---
Author Author ROSA ALOK Organization [facility] Address [address] [place] [address] Care Team Providers Care Waiter/Waitress Head Name Role Phone JOYCELYN LEEHANY Unavailable PROBLEMS Type Condition ICD9-CM Code [id number] Code Onset Dates Condition Status SNOMED Code Problem Tobacco use disorder F17.200 Active 318687650 Problem Gastroesophageal reflux disease, esophagitis presence not specified K21.9 Active 335798171 Problem Mild intermittent asthma without complication J45.20 Active 550721773 Problem Generalized anxiety disorder F41.1 Active 14119688 Problem Vaginal discharge N89.8 Active 187113068 Problem Irritable mood R45.4 Active 68883860 Problem Marijuana use F12.10 Active 20738672 Problem Bipolar disorder, in partial remission, most recent episode hypomanic F31.71 Active 173772781 Problem Dysthymic disorder F34.1 Active 78499071 ALLERGIES No Information ENCOUNTERS Encounter Location Date Diagnosis [facility] [address] [id number] [id number] April, Dental examination Z01.20 [facility] [address] [id number] R[place] [id number] Nov, [facility] [address] [id number], [place] [id number] Nov, Generalized anxiety disorder F41.1 and Other mental disorders complicating the puerperium O99.345 [facility] [address] [facility] [id number], [place] 917556864 Nov, Vaginal discharge N89.8 [facility] [address] [id number], [place] [id number] Nov, Irritable mood R45.4 and Bipolar disorder, in partial remission, most recent episode hypomanic F31.[address] [id number], [place] [address] Nov, [id number] [place] [address] [id number] Oct, Dysthymic disorder F34.1 and Irritable mood R45.4 [facility] [id number] [place] [address] 81770- 7490 Oct, [address] [place] [address]957- 4145 Oct, [address] [place] [address] 24302- 3203 Sep, care and examination Z39.2 and Encounter for Depo -Provera contraception Z30.42 [place] [id number] [place] [address] 31502- 1045 Sep, [address] [place] [address] 17858- 6278 Aug, [place] [id number] [place] [address] 34843- 7051 Aug, hemorrhage, unspecified type O72.1 and Marijuana use F12.10 [address] [id number] [place] [address] 47399- 0505 Aug, Third trimester Z34.93 and 39 weeks gestation of Z3A.[address] [id number], [place] [id number] Aug, Third trimester Z34.93 ; 38 weeks gestation of Z3A.38 and High risk teen in third trimester O09.[address] [id number] [place] [address] [id number] Jul, Normal first in second trimester Z34.02 [facility] [place] [address] [place] [address] [id number], [place] [id number] Jul, Normal in third trimester Z34.93 and 36 weeks gestation of Z3A.36 [address] [id number] [place] 4444554[address] Jul, [facility] [id number] [place] [address] [id number] Jul, [facility] [address] [facility] [address] [id number], [place] 946355103 Jul, Third trimester Z34.93 ; High risk teen in third trimester O09.893 and 34 weeks gestation of Z3A.34 [facility] [address] [facility] [address] [id number], [place] [id number] Jun, Encounter for immunization Z23 ; Third trimester Z34.93 and 32 weeks gestation of Z3A.32 [facility] [id number] RIVER, [place] [id number] Jun, [facility] [id number] [place] [address] [id number] April, [facility] [id number] [place] [address] [id number] April, Normal first in second trimester Z34.02 and 20 weeks gestation of Z3A.20 [facility] [id number] [place] [address] 16146- 2756 Mar, Normal first in second trimester Z34.02 [facility] [address]00565100[place] [address]64[address] Mar, [facility] [id number] [place] [address] 07786- 5144 Mar, [facility] [id number] [place] [address] 25597- 2546 Mar, 16 weeks gestation of Z3A.16 and Normal first in second trimester Z34.02 [facility] [address] [facility] [address] [id number], [place] [id number] Jan, Normal first confirmed, first trimester Z34.01 ; Diarrhea, unspecified R19.7 and Nausea with vomiting, unspecified R11.2 [facility] [id number] [place]IVER, [place] [id number] Jan, [facility] [id number] RIVER, [place] [id number] Jan, [facility] [id number] [place] [address] [id number] Jan, Normal first confirmed, first trimester Z34.01 ; 13 weeks gestation of Z3A.13 ; Other specified bacterial agents as the cause of diseases classified elsewhere B96.89 ; Acute vaginitis N76.0 and Tobacco use affecting in first trimester, antepartum O99.331 [facility] [address] [id number] [place] [phone] Nov, [facility] [id number] [place] [address] [id number] Sep, Generalized abdominal pain R10.84 and Intractable vomiting with nausea, unspecified vomiting type R11.2 [facility] [id number] [place] [address] [id number] Sep, [facility] [address] [id number] [place] [address] [id number] Sep, Epigastric pain R10.13 [facility] [address] [id number] RIVER[place] 0980188[address] Aug, Right upper quadrant abdominal pain R10.11 [facility] [address] [id number], [place] [id number] Jul, [facility] [address] [id number] [place]IVER, [place] [phone] Jun, Diarrhea, unspecified R19.7 and Nausea with vomiting, unspecified R11.2 [facility] [address] [id number] RIVER, [place] 644183684 May, Epigastric pain R10.13 [facility] [address] [id number] [place] [address] [id number] May, Epigastric pain R10.13 [facility] [id number] [place] [address] [id number] May, Epigastric pain R10.13 and Heart palpitations R00.2 [facility] [id number] [place] [address] [id number] April, [address] [place] [address] [id number] April, Fatigue R53.83 and Epigastric pain R10.13 [address] [place] [address] [id number] 17 Jan, 2016 GE (gastroenteritis) K52.9 and Acute upper respiratory infection, unspecified J06.9 [id number] [place] [address] [id number] Jan, Sore throat J02.9 and Fever R50.9 [id number] [place] [address] [id number] Dec, Encounter for initial prescription of contraceptive pills Z30.011 [id number] [place] [address] [id number] Nov, Wheezing R06.2 ; Coughing R05 ; Spasmodic cough R05 ; Fever R50.9 and Post -nasal drip R09.[address] [id number] [place] [address] [id number] Oct, Nausea R11.0 ; Vomiting R11.10 and Fever R50.9 [id number] [place] [address] [id number] Oct, Laryngitis J04.0 ; Encounter for immunization Z23 and Cough R05 [id number] [place] [address] [id number] Sep, Encounter for immunization Z23 ; Sinusitis, acute frontal J01.10 and Acute laryngitis J04.[id number] [place] [address] [id number] Jul, Sore throat 462 ; Fever 780.60 and Cough 786.[address] [place] [address] [id number] Jun, GARDASIL (HPV) DX V04.89 [address] [id number] [place] [address] [id number] May, Esophageal reflux 530.81 and GARDASIL (HPV) DX V04.89 [facility] [place] [address] [address] [facility] [id number], [place] [id number] April, Pharyngitis 462 and Bronchitis 490 [facility] [address] [facility] [id number][place] [address]- 3352 Mar, [facility] [address] [facility] [id number][place] [address]- 6377 Mar, [facility] [address] [facility] [id number], [place] [address]- [address] Sep, [facility] [address] [facility] [id number] [place] [address] 69788- 1745 Sep, [facility] [address] [id number], [place] [address]- 4539 Jun, [facility] [address] [id number], [place] [address]- 4882 Jun, [facility] [address] [id number], [place] [address]- 6084 April, [facility] [address] [id number], [place] [address]- 0863 April, [facility] [address] [id number], [place] [address]- 1827 Aug, [facility] [address] [facility] [id number][place] [address]- 7851 Aug, [facility] [address] [id number], [place] [address]- 2616 Aug, [facility] [address] [id number], [place] [address]- 7189 07 Aug, 2013 [facility] [address] [id number], [place] [address]- 9262 Jul, [facility] [address] [id number], [place] [address]- 7957 Mar, [facility] [address] [facility] [id number], [place] [address]- 3058 Mar, [facility] [address] [id number]28[place]- 0699 Dec, [facility] [address]00565100[place], [place] [address]- 2935 Oct, [facility] [address] [id number], [place] [address]- 4223 Oct, [facility] [address]00565100[place], [place] [address]- 4026 Jul, [facility] [address] [id number], [place] [address]- 1614 May, IMMUNIZATIONS No Known Immunizations SOCIAL HISTORY [...]
--- OUTSIDE RECORDS SUMMARY | 2019-04-10 05:56 | XMS REPORT ---
Author Author CATE ARELLANO [facility] Address Unknown Phone Unavailable Care Team Providers Care Documentum Consultant Name Role Phone SARAHCHELSEY CATE Unavailable Unavailable PROBLEMS Type Condition ICD9-CM Code LAP40-IM Code Onset Dates Condition Status SNOMED Code Problem Tobacco use disorder F17.200 Active 370812322 Problem Gastroesophageal reflux disease, esophagitis presence not specified K21.9 Active 013607138 Problem Mild intermittent asthma without complication J45.20 Active 260764065 Problem Generalized anxiety disorder F41.1 Active 77020752 Problem Vaginal discharge N89.8 Active 927899348 Problem Irritable mood R45.4 Active 44324037 Problem Marijuana use F12.10 Active 67935636 Problem Bipolar disorder, in partial remission, most recent episode hypomanic F31.71 Active 245713597 Problem Dysthymic disorder F34.1 Active 89614622 ALLERGIES No Information ENCOUNTERS Encounter Location Date Diagnosis [id number] [id number], [place] [id number] April, Dental examination Z01.20 [facility] [address] [id number] [place] [id number] Nov, [place] [address] [address] [facility] [id number][place] [id number] Nov, Generalized anxiety disorder F41.1 and Other mental disorders complicating the puerperium O99.345 [facility] [address] [facility] [id number] [id number] Nov, Vaginal discharge N89.8 [facility] [address] [facility] [id number] [place] [address] [id number] Nov, Irritable mood R45.4 and Bipolar disorder, in partial remission, most recent episode hypomanic F31.71 [facility] [address] [facility] [id number], [place] [id number] Nov, [address] [place] [address] [facility] [address] [id number], [place] [id number] Oct, Dysthymic disorder F34.1 and Irritable mood R45.4 [place] [address], [place] [address] Oct, [facility] [address] [place] [address] 38690- 1617 Oct, [place] [address] [id number] [place] [address] 15157- 2580 Sep, care and examination Z39.2 and Encounter for Depo -Provera contraception Z30.42 [place] [id number] [place] [address] 47990- 6739 Sep, [place] [address] [place] [address] 48280- 2274 Aug, [place] [id number] [place] [address] 16137- 4857 Aug, hemorrhage, unspecified type O72.1 and Marijuana use F12.10 [place] [address] [place] [address] 26116- 5657 Aug, Third trimester Z34.93 and 39 weeks gestation of Z3A.[address] [id number], [place] [id number] Aug, Third trimester Z34.93 ; 38 weeks gestation of Z3A.38 and High risk teen in third trimester O09.893 [facility] [address] [facility] [id number], [place] [id number] Jul, Normal first in second trimester Z34.[address] [id number], [place] [id number] Jul, Normal in third trimester Z34.93 and 36 weeks gestation of Z3A.36 [facility] [id number] [place] [address] [id number] Jul, [facility] [address] [id number] [place] [id number] Jul, [facility] [address] [facility] [address] [id number], [place] [id number] Jul, Third trimester Z34.93 ; High risk teen in third trimester O09.893 and 34 weeks gestation of Z3A.34 [facility] [address] [facility] [address] [id number], [place] [id number] Jun, Encounter for immunization Z23 ; Third trimester Z34.93 and 32 weeks gestation of Z3A.32 [facility] [address] [id number] [place] [phone] Jun, [facility] [id number] [place] [address] [id number] April, [facility] [id number] [place] [id number] April, Normal first in second trimester Z34.02 and 20 weeks gestation of Z3A.20 [facility] [address], [place] [address] Mar, Normal first in second trimester Z34.02 [facility] [id number] [place] [id number] Mar, [facility] [address] [id number], [place] [address] Mar, [facility] [id number] [place] [address] 46087- 2546 Mar, 16 weeks gestation of Z3A.16 and Normal first in second trimester Z34.02 [facility] [address] [facility] [address] [id number], [place] [id number] Jan, Normal first confirmed, first trimester Z34.01 ; Diarrhea, unspecified R19.7 and Nausea with vomiting, unspecified R11.2 [facility] [id number] [place] [id number] Jan, [facility] [id number] [place] [address] [id number] Jan, [facility] [id number] [place] [address] Jan, Normal first confirmed, first trimester Z34.01 ; 13 weeks gestation of Z3A.13 ; Other specified bacterial agents as the cause of diseases classified elsewhere B96.89 ; Acute vaginitis N76.0 and Tobacco use affecting in first trimester, antepartum O99.331 [facility] [id number] [place] [address] [id number] Nov, [facility] [address] [id number] [place] [address] [id number] Sep, Generalized abdominal pain R10.84 and Intractable vomiting with nausea, unspecified vomiting type R11.2 [facility] [id number] [place] [address] [id number] Sep, [facility] [id number] [place] [address] [id number] Sep, Epigastric pain R10.13 [facility] [id number] [place] [address] Aug, Right upper quadrant abdominal pain R10.[address] [id number], [place] [id number] Jul, [facility] [id number] [place] [id number] Jun, Diarrhea, unspecified R19.7 and Nausea with vomiting, unspecified R11.2 [facility] [address] [id number] [place] [id number] May, Epigastric pain R10.13 [facility] [id number] [place] [address] [id number] May, Epigastric pain R10.13 [facility] [id number] [place] [address] [id number] May, Epigastric pain R10.13 and Heart palpitations R00.2 [facility] [address] [id number] [place] [address] [id number] April, [facility] [id number] [place] [address] [id number] April, Fatigue R53.83 and Epigastric pain R10.13 [address] [place] [address] [id number] Jan, GE (gastroenteritis) K52.9 and Acute upper respiratory infection, unspecified J06.9 [address] [place] [id number] [place] [address] [id number] Jan, Sore throat J02.9 and Fever R50.[address] [id number] Dec, Encounter for initial prescription of contraceptive pills Z30.011 [address] [place] [id number] [place] [address] [id number] Nov, Wheezing R06.2 ; Coughing R05 ; Spasmodic cough R05 ; Fever R50.9 and Post -nasal drip R09.[id number] [place] [address] [id number] Oct, Nausea R11.0 ; Vomiting R11.10 and Fever R50.9 [address] [place] [id number] [place] [address] [id number] Oct, Laryngitis J04.0 ; Encounter for immunization Z23 and Cough R05 [address] [id number] [place] [address] [id number] Sep, Encounter for immunization Z23 ; Sinusitis, acute frontal J01.10 and Acute laryngitis J04.[address] [id number], [place] [id number] Jul, Sore throat 462 ; Fever 780.60 and Cough 786.[address] [place] [address] [id number] Jun, GARDASIL (HPV) DX V04.89 [place] [id number] [place] [address] [id number] May, Esophageal reflux 530.81 and GARDASIL (HPV) DX V04.[id number] [place] [address] [id number] April, Pharyngitis 462 and Bronchitis 490 [facility] [address] [id number] [place] [address]- [address] 14 Mar, 2015 [facility] [address] [facility] [id number] [place] [address]- 8551 Mar, [facility] [address] [facility] [id number] [place] [address]- 6521 Sep, [facility] [address] [id number] [place] [address]- 9578 Sep, [facility] [address] [facility] [id number] [place] [address], [place] [address]- 2827 Jun, [facility] [address] [facility] [id number] [place] [address]- 7555 Jun, [facility] [address] [id number] [place] [address]- 1092 April, [facility] [address] [id number] [place] [address]- 4785 April, [facility] [address] [id number] [place] [address]- 1062 Aug, [facility] [address] [facility] [id number], [place] [address]- 0781 Aug, [facility] [address] [facility] [id number] [place] [address]- 0406 19 Aug, 2013 [facility] [address] [facility] [id number], [place] [address]- 3271 07 Aug, 2013 [facility] [address] [facility] [id number] [place] [address]- 3355 Jul, [facility] [address] [facility] [id number] [place] [address]- 9148 11 Mar, 2013 [facility] [address] [facility] [id number], [place] [address]- 9913 Mar, [facility] [address] [facility] [id number], [place] [address]- 2546 Dec, [facility] [address] [id number], [place] [address]- 2546 Oct, [facility] [address] [facility] [id number], [place] [address]- 2546 Oct, [facility] [address] [id number], [place] [address]- 2546 Jul, [facility] [address] [facility] [id number], [place] [address] 2546 May, IMMUNIZATIONS No Known Immunizations SOCIAL HISTORY Never Assessed REASON FOR VISIT intake PLAN OF CARE Activity Details Follow Up 3 weeks approx. Reason:mood dysregulation VITAL SIGNS MEDICATIONS No Known Medications RESULTS No Results PROCEDURES Procedure Date Ordered Result Body Site Psychotherapy, patient &/family, 30 minutes, established patient Oct 21, 2017 INSTRUCTIONS MEDICATIONS ADMINISTERED No Known Medications MEDICAL (GENERAL) HISTORY Type Description Date Medical History Esophageal reflux Medical History Asthma Medical History Chronic Constipation Medical History Lactose Intolerance Medical History Hematologic Disorder High Platelets Medical History [place] Medical History Bronchitis Medical History Anemia Medical History Hives Surgical History cholecystectomy ([facility]) 08/21/16 Hospitalization History childbirth
--- OUTSIDE RECORDS SUMMARY | 2019-04-10 05:57 | XMS REPORT ---
Author Author NARA CASTRO Organization [facility] Address [address] [place] [address] Care Team Providers Care Applied Statistician Name Role Phone NARA CASTRO Unavailable PROBLEMS Type Condition ICD9-CM Code WZG79-IZ Code Onset Dates Condition Status SNOMED Code Problem Tobacco use disorder F17.200 Active 336421135 Problem Gastroesophageal reflux disease, esophagitis presence not specified K21.9 Active 235169520 Problem Mild intermittent asthma without complication J45.20 Active 698550808 Problem Generalized anxiety disorder F41.1 Active 00935030 Problem Vaginal discharge N89.8 Active 675657738 Problem Irritable mood R45.4 Active 44315446 Problem Marijuana use F12.10 Active 44847944 Problem Bipolar disorder, in partial remission, most recent episode hypomanic F31.71 Active 965319405 Problem Dysthymic disorder F34.1 Active 43245329 ALLERGIES No Known Allergies ENCOUNTERS Encounter Location Date Diagnosis [facility] [address] [facility] [id number] [place] [id number] Nov, [facility] [address] [id number][place] [id number] Nov, Generalized anxiety disorder F41.1 and Other mental disorders complicating the puerperium O99.345 [facility] [address] [facility] [id number], [place] [id number] Nov, Vaginal discharge N89.8 [facility] [address] [facility] [id number], [place] [id number] Nov, Irritable mood R45.4 and Bipolar disorder, in partial remission, most recent episode hypomanic F31.71 [facility] [address] [facility] [id number], [place] [id number] Nov, [facility] [address] [facility] [id number], [place] [id number] Oct, Dysthymic disorder F34.1 and Irritable mood R45.4 [place] [id number] [place] [address] 35170- 4160 Oct, [facility] [id number] [place] [address] 62029- 1405 Oct, [place] [id number] [place] [address] 35135- 3334 Sep, care and examination Z39.2 and Encounter for Depo -Provera contraception Z30.42 [place] [id number] [place] [address] 00924- 3232 Sep, [place] [id number] [place] [address] 76862- 3923 Aug, [place] [id number] [place] [address] 81536- 2656 Aug, hemorrhage, unspecified type O72.1 and Marijuana use F12.10 [place] [id number] [place] [address] 19352- 8050 Aug, Third trimester Z34.93 and 39 weeks gestation of Z3A.[address] [id number], [place] [id number] Aug, Third trimester Z34.93 ; 38 weeks gestation of Z3A.38 and High risk teen in third trimester O09.[address] [id number], [place] [id number] Jul, Normal first in second trimester Z34.[address] [id number], [place] [id number] Jul, Normal in third trimester Z34.93 and 36 weeks gestation of Z3A.36 [facility] [address]00565100[place] [id number] Jul, [facility] [address] [id number] [id number] Jul, [facility] [address] [id number], [place] [address]6984 Jul, Third trimester Z34.93 ; High risk teen in third trimester O09.893 and 34 weeks gestation of Z3A.[address] [facility] [address] [id number] [place] [id number] Jun, Encounter for immunization Z23 ; Third trimester Z34.93 and 32 weeks gestation of Z3A.32 [facility] [address] [id number] [place] [id number] Jun, [facility] [address] [id number] [place] [id number] April, [facility] [address] [place] [address] [id number] [place] [id number] April, Normal first in second trimester Z34.02 and 20 weeks gestation of Z3A.20 [facility] [address]00565100[place] [address]- 6871 Mar, Normal first in second trimester Z34.02 [facility] [id number] [place] [id number] Mar, [facility] [address]00565100[place] [address]- [address]101 Mar, [facility] [address]00565100[place] 47[address]- 7809 Mar, 16 weeks gestation of Z3A.16 and Normal first in second trimester Z34.02 [facility] [address] [id number] [place] 8[address] Jan, Normal first confirmed, first trimester Z34.01 ; Diarrhea, unspecified R19.7 and Nausea with vomiting, unspecified R11.2 [facility] [address] [id number] [place] [id number] Jan, [facility] [id number] [place] [id number] Jan, [facility] [id number] [place] [id number] Jan, Normal first confirmed, first trimester Z34.01 ; 13 weeks gestation of Z3A.13 ; Other specified bacterial agents as the cause of diseases classified elsewhere B96.89 ; Acute vaginitis N76.0 and Tobacco use affecting in first trimester, antepartum O99.331 [facility] [id number] [place] [address] [id number] Nov, [facility] [id number] [place] [address] [id number] Sep, Generalized abdominal pain R10.84 and Intractable vomiting with nausea, unspecified vomiting type R11.2 [facility] [id number] [place] [address] [id number] Sep, [facility] [id number] [place] [address] [id number] Sep, Epigastric pain R10.13 [facility] [id number] [place] [address] [id number] Aug, Right upper quadrant abdominal pain R10.11 [place] [address] [facility] [id number], [place] [id number] Jul, [facility] [id number] [place] [address] [id number] Jun, Diarrhea, unspecified R19.7 and Nausea with vomiting, unspecified R11.2 [facility] [id number] [place] [address] [id number] May, Epigastric pain R10.13 [facility] [id number] [place] [address] [id number] May, Epigastric pain R10.13 [facility] [id number] [place] [address] [id number] May, Epigastric pain R10.13 and Heart palpitations R00.2 [facility] [id number] [place] [address] [id number] April, [facility] [id number] [place] [address] [id number] April, Fatigue R53.83 and Epigastric pain R10.13 [address]005[address]100[place] [id number] 17 Jan, 2016 GE (gastroenteritis) K52.9 and Acute upper respiratory infection, unspecified J06.9 [id number] [place] [address] [id number] Jan, Sore throat J02.9 and Fever R50.9 [place] [id number] [place] [address] [id number] Dec, Encounter for initial prescription of contraceptive pills Z30.011 [id number] [place] [address] [id number] Nov, Wheezing R06.2 ; Coughing R05 ; Spasmodic cough R05 ; Fever R50.9 and Post -nasal drip R09.[address] [id number], [place] [id number] Oct, Nausea R11.0 ; Vomiting R11.10 and Fever R50.[address] [place] [address] [id number] Oct, Laryngitis J04.0 ; Encounter for immunization Z23 and Cough R05 [place] [id number] [place] [address] [id number] Sep, Encounter for immunization Z23 ; Sinusitis, acute frontal J01.10 and Acute laryngitis J04.[address] [id number], [place] [id number] Jul, Sore throat 462 ; Fever 780.60 and Cough 786.[address] [place] [address] [id number] Jun, GARDASIL (HPV) DX V04.89 [address] [place] [address] [id number] May, Esophageal reflux 530.81 and GARDASIL (HPV) DX V04.[id number] [place] [address] [id number] April, Pharyngitis 462 and Bronchitis 490 [facility] [address] [id number] [place] [address]- 1515 14 Mar, 2015 [facility] [address] [id number] [place] [address]- 2511 Mar, [facility] [address] [id number] [place] [address]- 3429 Sep, [facility] [place] [facility] [address] [id number] [place] [address]- 4095 Sep, [facility] [address] [id number] [place] [address]- 3052 Jun, [facility] [place] [facility] [address] [id number] [place] [address]- 5623 Jun, [facility] [address] [id number] [place] [address]- 0205 April, [facility] [place] [facility] [address] [id number] [place] [address]- 3711 April, [facility] [address] [id number] [place] [address]- 3872 Aug, [facility] [place] [facility] [address] [id number] [place] [address]- 0016 Aug, [facility] [address] [id number] [place] [address]- 7359 Aug, [facility] [place] [facility] [address] [id number] [place] [address]- 7646 07 Aug, 2013 [facility] [place] [facility] [address] [id number] [place] [address]- 8619 Jul, [facility] [place] [facility] [address] [id number] [place] [address]- 4116 Mar, [facility] [place] [facility] [address] [id number] [place] [address]- 6894 08 Mar, 2013 [facility] [place] [facility] [address] [facility] [id number] [place] [address]- 3186 Dec, [facility] [address] [facility] [id number] [place] [address]- 7231 Oct, [facility] [address] [facility] [id number] [place] [address] Oct, [facility] [address] [facility] [id number] [place] [address] Jul, [facility] [address] [facility] [id number] [place] [address] May, IMMUNIZATIONS No Known Immunizations SOCIAL HISTORY Never Assessed REASON FOR VISIT bleeding--tcuppettRN, -Pt started passing clots last night size of golf ball approximately along with abdominal cramping PLAN OF CARE Activity Details Follow Up Keep your 6 week PP visit with [facility] Reason: VITAL SIGNS Height 62 in 2017-08-26 Weight 142.3 lbs 2017-08-26 Temperature 98.4 degrees Fahrenheit 2017-08-26 Heart Rate 88 bpm 2017-08-26 Respiratory Rate 20 2017-08-26 BMI 26.02 kg/m2 2017-08-26 Blood pressure systolic 140 mmHg 2017-08-26 Blood pressure diastolic 78 mmHg 2017-08-26 MEDICATIONS Unknown Medications RESULTS Name Result Date Reference Range URINE DRUG SCREEN (IN HOUSE) 2017-08-26 Lot # [id number] Exp date 01/2019 Control + COCAINE neg AMPH neg MTD neg THC Positive OPIATE neg BENZO neg PCP neg BAR neg OXY neg MAMP neg TCA neg BUP neg MDMA neg PROCEDURES Procedure Date Ordered Result Body Site LAB NOT BILLED BY [facility] Aug 26, 2017 INSTRUCTIONS MEDICATIONS ADMINISTERED No Known Medications MEDICAL (GENERAL) HISTORY Type Description Date Medical History Esophageal reflux Medical History Asthma Medical History Chronic Constipation Medical History Lactose Intolerance Medical History Hematologic Disorder High Platelets Surgical History cholecystectomy ([facility]) 08/21/16 Hospitalization History childbirth
--- OUTSIDE RECORDS SUMMARY | 2019-04-10 05:57 | XMS REPORT ---
Author Author JANNA PINTO Organization [facility] Address [address] [place] [address] Care Team Providers Care Road Roller Operator Hot Mix Name Role Phone PEPEHUMBERTOGEORGINA OlmosT Unavailable PROBLEMS Type Condition ICD9-CM Code IYU03-ZG Code Onset Dates Condition Status SNOMED Code Problem Tobacco use disorder F17.200 Active 736553239 Problem Gastroesophageal reflux disease, esophagitis presence not specified K21.9 Active 717574372 Problem Mild intermittent asthma without complication J45.20 Active 380955680 Problem Generalized anxiety disorder F41.1 Active 74159616 Problem Vaginal discharge N89.8 Active 860097851 Problem Irritable mood R45.4 Active 60763683 Problem Marijuana use F12.10 Active 77519684 Problem Bipolar disorder, in partial remission, most recent episode hypomanic F31.71 Active 356795861 Problem Dysthymic disorder F34.1 Active 56507171 ALLERGIES No Known Allergies ENCOUNTERS Encounter Location Date Diagnosis [place] [address] [id number] [id number] April, Dental examination Z01.20 [facility] [address] [id number][place] [id number] Nov, [place] [address] [employer] [id number] [place] [address] [id number] Nov, Generalized anxiety disorder F41.1 and Other mental disorders complicating the puerperium O99.345 [place] [address] [employer] [id number] [place] [address] [id number] Nov, Vaginal discharge N89.8 [facility] [employer]ight0 NitroPCR [id number] [place]LAND[place] [id number] Nov, Irritable mood R45.4 and Bipolar disorder, in partial remission, most recent episode hypomanic F31.[address] [id number] ISLAND[place] [id number] Nov, [address] [id number] [place] [address]7554[address] Oct, Dysthymic disorder F34.1 and Irritable mood R45.4 [facility] [id number] [place] [address] 47893- 3240 Oct, [facility] [id number] [place] [address] 68387- 7404 Oct, [place] [address] [id number] [place] [address] 01301- 7201 Sep, care and examination Z39.2 and Encounter for Depo -Provera contraception Z30.42 [place] [id number] [place] [address] 42850- 1144 Sep, [place] [id number] [place] [address] 34330- 6078 Aug, [place] [address] [id number] [place] [address] 08336- 5039 Aug, hemorrhage, unspecified type O72.1 and Marijuana use F12.10 [place] [address]00565100[place], [place] [address] Aug, Third trimester Z34.93 and 39 weeks gestation of Z3A.[address] [id number] ISLAND[place] [id number] Aug, Third trimester Z34.93 ; 38 weeks gestation of Z3A.38 and High risk teen in third trimester O09.[address] [id number] ISLAND[place] [address] Jul, Normal first in second trimester Z34.[address] [id number] [place]LAND[place] [id number] Jul, Normal in third trimester Z34.93 and 36 weeks gestation of Z3A.36 [facility] [id number], [place] [address] Jul, [facility] [id number] [place] [address] [id number] Jul, [facility] [address] [facility] [id number] ISLAND[place] [id number] Jul, Third trimester Z34.93 ; High risk teen in third trimester O09.893 and 34 weeks gestation of Z3A.34 [facility] [address] [facility] [id number] [place]LAND[place] [id number] Jun, Encounter for immunization Z23 ; Third trimester Z34.93 and 32 weeks gestation of Z3A.32 [facility] [id number], [place] [address] Jun, [facility] S[facility] [place] [address] [id number] April, [facility] [id number] [place] [address] [id number] April, Normal first in second trimester Z34.02 and 20 weeks gestation of Z3A.20 [place] [id number] [place] [address] 55672- 1656 Mar, Normal first in second trimester Z34.02 [facility] [address]00565100[place] [id number] Mar, [facility] [id number] [place] [address] 66588- 9441 Mar, [facility] [id number] [place] [address] 34583 2541 Mar, 16 weeks gestation of Z3A.16 and Normal first in second trimester Z34.02 [facility] [address] [facility] [id number] [place]LAND[place] [address] Jan, Normal first confirmed, first trimester Z34.01 ; Diarrhea, unspecified R19.7 and Nausea with vomiting, unspecified R11.2 [facility] [address] [place] [id number] [address] Jan, [facility] [id number], [place] [address] Jan, [facility] [id number], [place] [id number] Jan, Normal first confirmed, first trimester Z34.01 ; 13 weeks gestation of Z3A.13 ; Other specified bacterial agents as the cause of diseases classified elsewhere B96.89 ; Acute vaginitis N76.0 and Tobacco use affecting in first trimester, antepartum O99.331 [facility] [id number], [place] [id number] Nov, [facility] [address] [id number] [place] [address] [phone] Sep, Generalized abdominal pain R10.84 and Intractable vomiting with nausea, unspecified vomiting type R11.2 [facility] [id number] [place] [address] [phone] Sep, [facility] [id number] [place] [address] [id number] Sep, Epigastric pain R10.13 [facility] [address] [facility] [id number], [place] [address] Aug, Right upper quadrant abdominal pain R10.11 [facility] [place]YESMICHA[place] [address] [facility] [id number] [place] [id number] Jul, [facility] [address] [facility] [id number], [place] [address] Jun, Diarrhea, unspecified R19.7 and Nausea with vomiting, unspecified R11.2 [facility]I [address] [facility] [id number], [place] [id number] May, Epigastric pain R10.13 [facility] BRU[facility] [id number], [place] [id number] May, Epigastric pain R10.13 [facility] [address] [id number], [place] [phone] May, Epigastric pain R10.13 and Heart palpitations R00.2 [facility] [place] [address] [id number] April, [place] [id number] [place] [address] [id number] April, Fatigue R53.83 and Epigastric pain R10.13 [place] [id number] [place] [address] [id number] Jan, GE (gastroenteritis) K52.9 and Acute upper respiratory infection, unspecified J06.9 [place] [id number] [place] [address] [id number] Jan, Sore throat J02.9 and Fever R50.[address] [id number] Dec, Encounter for initial prescription of contraceptive pills Z30.011 [place] [id number] [place] [address] [id number] Nov, Wheezing R06.2 ; Coughing R05 ; Spasmodic cough R05 ; Fever R50.9 and Post -nasal drip R09.[id number] [place] [address] [id number] Oct, Nausea R11.0 ; Vomiting R11.10 and Fever R50.9 [place] [id number] [place] [address] [id number] Oct, Laryngitis J04.0 ; Encounter for immunization Z23 and Cough R05 [place] [id number] [place] [address] [id number] Sep, Encounter for immunization Z23 ; Sinusitis, acute frontal J01.10 and Acute laryngitis J04.[id number] [place] [address] [id number] Jul, Sore throat 462 ; Fever 780.60 and Cough 786.2 [place] [id number] [place] [address] [id number] Jun, GARDASIL (HPV) DX V04.89 [place] [id number] [place] [address] [id number] May, Esophageal reflux 530.81 and GARDASIL (HPV) DX V04.89 [facility] [place]YESMICHAEL [place] [address] [facility] [id number] [place] 999429[address] April, Pharyngitis 462 and Bronchitis 490 [facility] [address] [facility] [id number] [place] [address]- 8113 Mar, [facility] [id number] [place] [address] 55875- 1310 Mar, [facility] [address] [place] [address] [id number], [place] [address]- 8152 Sep, [facility] [id number] [place] [address] 97277- 0090 Sep, [facility] [address]00565100[place], [place] [address]- 8326 Jun, [facility] [id number] [place] [address] 45476- 5861 Jun, [facility] [address] [place] [address] [id number], [place] [address]- 3964 April, [facility] [id number] [place] [address] 94764- 4793 April, [facility] [address]00565100[place], [place] [address]- 5003 Aug, [facility] [address]00565100[place], [place] [address]- 7549 Aug, [facility] [address] [place] [address] [id number], [place] [address]- 4433 Aug, [facility] [id number] [place] [address] 48193- 0433 07 Aug, 2013 [facility] [address]00565100[place], [place] [address]- 2604 Jul, [facility] [address] [place] [address] 10951- 6163 Mar, [facility] [address] [facility] [id number], [place] [address]- 2546 Mar, [facility] [address] [facility] [id number], [place] [address]- 2546 Dec, [facility] [address] [facility] [id number], [place] [address]- 2546 Oct, [facility] [address] [facility] [id number], [place] [address]- 2546 Oct, [facility] [address] [facility] [id number], [place] [address]- 0336 Jul, [facility] [address] [facility] [id number], [place] [address]- 8466 May, IMMUNIZATIONS No Known Immunizations SOCIAL HISTORY Never Assessed REASON FOR VISIT Vaginal bleeding for over a month. [place] PLAN OF CARE Activity Details Follow Up 2 Weeks Reason: VITAL SIGNS Height 62 in 2017-11-15 Weight 127.0 lbs 2017-11-15 Temperature 99.3 degrees Fahrenheit 2017-11-15 Heart Rate 100 bpm 2017-11-15 Respiratory Rate 19 2017-11-15 BMI 23.23 kg/m2 2017-11-15 Blood pressure systolic 110 mmHg 2017-11-15 Blood pressure diastolic 70 mmHg 2017-11-15 MEDICATIONS Medication Instructions Dosage Frequency Start Date End Date Duration Status Zoloft 25 MG Orally Once a day 1 tablet 24h 08 Oct, 2017 30 day(s) Not -Taking Clonazepam 0.5 MG Orally twice a day 1/2 tablet 12h Nov, 30 days Active - Orally Once a day 1 tablet 24h Not-Taking RESULTS No Results PROCEDURES No Known procedures [...]
--- OUTSIDE RECORDS SUMMARY | 2019-04-10 05:57 | XMS REPORT ---
Author Author NARA CASTRO Organization [facility] Address [address] [place] [address] Care Team Providers Care Road Crew Member Name Role Phone NARA CASTRO Unavailable PROBLEMS Type Condition ICD9-CM Code DQX47-XY Code Onset Dates Condition Status SNOMED Code Problem Tobacco use disorder F17.200 Active 916134310 Problem Gastroesophageal reflux disease, esophagitis presence not specified K21.9 Active 933673344 Problem Mild intermittent asthma without complication J45.20 Active 864089272 Problem Generalized anxiety disorder F41.1 Active 28145156 Problem Vaginal discharge N89.8 Active 202246048 Problem Irritable mood R45.4 Active 26876369 Problem Marijuana use F12.10 Active 81231173 Problem Bipolar disorder, in partial remission, most recent episode hypomanic F31.71 Active 432891354 Problem Dysthymic disorder F34.1 Active 42931754 ALLERGIES No Known Allergies ENCOUNTERS Encounter Location Date Diagnosis [facility] [address] [facility] [id number][place] [id number] Nov, [facility] [address] [id number] [address] Nov, Generalized anxiety disorder F41.1 and Other mental disorders complicating the puerperium O99.345 [facility] [address] [facility] [id number], [place] [address]49[address] Nov, Vaginal discharge N89.8 [facility] [address] [facility] [id number], [place] [id number] Nov, Irritable mood R45.4 and Bipolar disorder, in partial remission, most recent episode hypomanic F31.71 [facility] [address] [facility] [id number], [place] 0559877[address] Nov, [facility] [address]YESDAV[place] [address]80 [facility] [id number], [place] [id number] Oct, Dysthymic disorder F34.1 and Irritable mood R45.4 [place] [address] [id number] [place] [address] 55189- 0375 Oct, [facility] [id number] [place] [address] 11233- 2252 Oct, [place] [address] [place] [address] [id number] [place] [address] 50805- 4239 Sep, care and examination Z39.2 and Encounter for Depo -Provera contraception Z30.42 [place] [address] [place] [id number] [place] [address] 51497- 5356 Sep, [place] [address] [address] [id number] [place] [address] 29737- 5544 Aug, [place] [address] [place] [address] [id number] [place] [address] 90150- 5885 Aug, hemorrhage, unspecified type O72.1 and Marijuana use F12.10 [place] [address] [address] [id number] [place] [address] 17335- 0073 Aug, Third trimester Z34.93 and 39 weeks gestation of Z3A.[address] [id number], [place] [id number] Aug, Third trimester Z34.93 ; 38 weeks gestation of Z3A.38 and High risk teen in third trimester O09.[address] [id number], [place] [id number] Jul, Normal first in second trimester Z34.[address] [id number], [place] 921200402 Jul, Normal in third trimester Z34.93 and 36 weeks gestation of Z3A.36 [facility] [address]00565100[place], [place] [id number] Jul, [facility] [address] [place] [address] [id number], [place] [address]85[address] Jul, [facility] [address] [facility] [address] [id number], [place] 539[address] Jul, Third trimester Z34.93 ; High risk teen in third trimester O09.893 and 34 weeks gestation of Z3A.[address] [facility] [address] [id number] [place] [address] Jun, Encounter for immunization Z23 ; Third trimester Z34.93 and 32 weeks gestation of Z3A.32 [facility] [address] [id number], [place] 717853399 Jun, [facility] [address] [id number], [place] [id number] April, [facility] [address] [place] [id number], [place] [address] April, Normal first in second trimester Z34.02 and 20 weeks gestation of Z3A.20 [facility] [address]00565100[place], [place] [address]- 1806 Mar, Normal first in second trimester Z34.02 [facility] [id number], [place] [id number] Mar, [facility] [address]00565100[place], [place] 813[place]- 2391 Mar, [facility] [address]00565100[place], [place] 119014- 9657 Mar, 16 weeks gestation of Z3A.16 and Normal first in second trimester Z34.02 [facility] [address] [facility] [address] [id number] [place] [id number] Jan, Normal first confirmed, first trimester Z34.01 ; Diarrhea, unspecified R19.7 and Nausea with vomiting, unspecified R11.2 [facility] [address] [id number], [place] [id number] Jan, [facility] [id number], [place] 83[address]06509 Jan, [facility] [id number], [place] 217872128 Jan, Normal first confirmed, first trimester Z34.01 ; 13 weeks gestation of Z3A.13 ; Other specified bacterial agents as the cause of diseases classified elsewhere B96.89 ; Acute vaginitis N76.0 and Tobacco use affecting in first trimester, antepartum O99.331 [facility] [id number] [place] [address] [id number] Nov, [facility] [id number] [place] [address] [phone] Sep, Generalized abdominal pain R10.84 and Intractable vomiting with nausea, unspecified vomiting type R11.2 [facility] [id number] [place] [address] [id number] Sep, [facility] [id number] [place] [address] [id number] Sep, Epigastric pain R10.13 [facility] [id number] [place] [address] [id number] Aug, Right upper quadrant abdominal pain R10.11 [place] 667080 [facility] [id number], [place] [id number] Jul, [facility] [id number] [place] [address] [id number] Jun, Diarrhea, unspecified R19.7 and Nausea with vomiting, unspecified R11.2 [facility] [id number] [place] [address] [id number] May, Epigastric pain R10.13 [facility] [id number] [place] [address] [id number] May, Epigastric pain R10.13 [facility] [id number] [place] [address] [id number] May, Epigastric pain R10.13 and Heart palpitations R00.2 [facility] [id number] [place] [address] [id number] April, [facility] [id number] [place] [address] [id number] April, Fatigue R53.83 and Epigastric pain R10.13 [address]00565100[place], [place] [id number] 17 Jan, 2016 GE (gastroenteritis) K52.9 and Acute upper respiratory infection, unspecified J06.9 [place] [id number] [place] [address] [id number] Jan, Sore throat J02.9 and Fever R50.9 [place] [id number] [place] [address] [id number] Dec, Encounter for initial prescription of contraceptive pills Z30.011 [place] [id number] [place] [address] [id number] Nov, Wheezing R06.2 ; Coughing R05 ; Spasmodic cough R05 ; Fever R50.9 and Post -nasal drip R09.[address] [id number], [place] [id number] Oct, Nausea R11.0 ; Vomiting R11.10 and Fever R50.9 [address] [place] [address] [id number] Oct, Laryngitis J04.0 ; Encounter for immunization Z23 and Cough R05 [place] [id number] [place] [address] [id number] Sep, Encounter for immunization Z23 ; Sinusitis, acute frontal J01.10 and Acute laryngitis J04.[address] [id number], [place] [id number] Jul, Sore throat 462 ; Fever 780.60 and Cough 786.[address] [place] [address] [id number] Jun, GARDASIL (HPV) DX V04.89 [address] [place] [address] [id number] May, Esophageal reflux 530.81 and GARDASIL (HPV) DX V04.[id number] [place] [address] [id number] April, Pharyngitis 462 and Bronchitis 490 [facility] [address] [id number] [place] [address]- 6114 14 Mar, 2015 [facility] [address] [id number] [place] [address]- 7676 Mar, [facility] [address] [id number] [place] [address]- 3256 Sep, [facility] [place] [facility] [address] [id number] [place] [address]- 0884 Sep, [facility] [address] [id number] [place] [address]- 4068 Jun, [facility] [place] [facility] [address] [id number] [place] [address]- 8908 Jun, [facility] [address] [id number] [place] [address]- 0381 April, [facility] [place] [facility] [address] [id number] [place] [address]- 0219 April, [facility] [address] [id number] [place] [address]- 6657 Aug, [facility] [place] [facility] [address] [id number] [place] [address]- 4034 Aug, [facility] [address] [id number] [place] [address]- 4404 Aug, [facility] [place] [facility] [address] [id number] [place] [address]- 2511 07 Aug, 2013 [facility] [place] [facility] [address] [id number] [place] [address]- 3287 Jul, [facility] [place] [facility] [address] [id number] [place] [address]- 4712 Mar, [facility] [place] [facility] [address] [id number] [place] [address]- 6171 08 Mar, 2013 [facility] [place] [facility] [address] [facility] [facility] [id number] [place] [address]- 9016 Dec, [facility] [address] [facility] [address]ED [facility] [id number], [place] [address]- 8925 Oct, [facility] [address] [facility] [address]AMED [facility] [id number], [place] [address]- 6916 Oct, [facility] [address] FORMER[facility] NAMED [facility] [id number], [place] [address]- 6076 Jul, [facility] [address] [facility] [id number], [place] [address] May, IMMUNIZATIONS No Known Immunizations SOCIAL HISTORY Never Assessed REASON FOR VISIT OB [id number] PLAN OF CARE Activity Details Follow Up 1 Week Reason: VITAL SIGNS Height 62 in 2017-08-13 Weight 156.8 lbs 2017-08-13 Temperature 99.5 degrees Fahrenheit 2017-08-13 Heart Rate 88 bpm 2017-08-13 Respiratory Rate 20 2017-08-13 BMI 28.679 kg/m2 2017-08-13 Blood pressure systolic 124 mmHg 2017-08-13 Blood pressure diastolic 72 mmHg 2017-08-13 MEDICATIONS Unknown Medications RESULTS Name Result Date Reference Range UA OB DIP (IN HOUSE) 2017-08-13 Glucose negative Protein trace PROCEDURES Procedure Date Ordered Result Body Site URINE-NO MICRO Aug 13, 2017 INSTRUCTIONS MEDICATIONS ADMINISTERED No Known Medications MEDICAL (GENERAL) HISTORY Type Description Date Medical History Esophageal reflux Medical History Asthma Medical History Chronic Constipation Medical History Lactose Intolerance Medical History Hematologic Disorder High Platelets Surgical History cholecystectomy ([facility]) 08/21/16 Hospitalization History childbirth
--- OUTSIDE RECORDS SUMMARY | 2019-04-10 05:57 | XMS REPORT ---
Author Author NARA CASTRO Organization [facility] Address [address] [place] [address] Care Team Providers Care Switch Inspector Name Role Phone NARA CASTRO Unavailable PROBLEMS Type Condition ICD9-CM Code JOT32-KB Code Onset Dates Condition Status SNOMED Code Problem Tobacco use disorder F17.200 Active 924481663 Problem Gastroesophageal reflux disease, esophagitis presence not specified K21.9 Active 678862509 Problem Mild intermittent asthma without complication J45.20 Active 309892012 Problem Generalized anxiety disorder F41.1 Active 75894063 Problem Vaginal discharge N89.8 Active 459375761 Problem Irritable mood R45.4 Active 67800747 Problem Marijuana use F12.10 Active 42837116 Problem Bipolar disorder, in partial remission, most recent episode hypomanic F31.71 Active 348805196 Problem Dysthymic disorder F34.1 Active 73143061 ALLERGIES No Information ENCOUNTERS Encounter Location Date Diagnosis [place] [address] [id number][place] [id number] April, Dental examination Z01.20 [facility] [address] [id number], [place] [phone] Nov, [facility] [address] [id number], [place] [id number] Nov, Generalized anxiety disorder F41.1 and Other mental disorders complicating the puerperium O99.345 [facility] [address] [facility] [facility] [id number] [phone] Nov, Vaginal discharge N89.8 [place] [address] [facility] [address] [id number], [place] [id number] Nov, Irritable mood R45.4 and Bipolar disorder, in partial remission, most recent episode hypomanic F31.[address] [id number], [place] [id number] Nov, [facility] [address] Kirk [address] [facility] [address] [id number], [place] [id number] Oct, Dysthymic disorder F34.1 and Irritable mood R45.4 [place] [address] [place] [address]99 Oct, [place] [address] [address] Oct, [place] [address] [place] [id number] [place] [address] 7107 Sep, care and examination Z39.2 and Encounter for Depo -Provera contraception Z30.42 [place] [address] [place] [id number] [place] [address]29- 8306 Sep, [place] [address] [place] [id number] [place] [address]47- 4920 Aug, [place] [address] [place] [id number] [place] [address]61- 7763 Aug, hemorrhage, unspecified type O72.1 and Marijuana use F12.10 [place] [address] [place] [id number] [place] [address] 63445- 3463 Aug, Third trimester Z34.93 and 39 weeks gestation of Z3A.39 [facility] [id number][place] [phone] Aug, Third trimester Z34.93 ; 38 weeks gestation of Z3A.38 and High risk teen in third trimester O09.893 [place] [address] [facility] [id number], [place] [id number] Jul, Normal first in second trimester Z34.02 [facility] AMY Bradley [address] [facility] [address] [id number], [place] [id number] Jul, Normal in third trimester Z34.93 and 36 weeks gestation of Z3A.[address] [id number], [place] [id number] Jul, [facility] [id number][place] [id number] Jul, [facility] [address] [address] [facility] [address] [id number], [place] [id number] Jul, Third trimester Z34.93 ; High risk teen in third trimester O09.893 and 34 weeks gestation of Z3A.34 [facility] [place] [address] [facility] [address] [id number], [place] [phone] Jun, Encounter for immunization Z23 ; Third trimester Z34.93 and 32 weeks gestation of Z3A.32 [facility] [id number] [place] [id number] Jun, [facility] [address] [place] [id number] [place] [id number] April, [facility] [place] [address] [place] [address] [id number] [place] [id number] April, Normal first in second trimester Z34.02 and 20 weeks gestation of Z3A.20 [place] [address] [place] [id number] [place] [address]328- 7839 Mar, Normal first in second trimester Z34.02 [facility] [place] [address]00565100[place] [id number] Mar, [facility] [address] [place] [id number] [place] [address]369- 2257 Mar, [facility] [address] [place] [id number] [place] [address] 09305- 2546 Mar, 16 weeks gestation of Z3A.16 and Normal first in second trimester Z34.02 [facility] [address] [address] [facility] [address] [id number], [place] [phone] Jan, Normal first confirmed, first trimester Z34.01 ; Diarrhea, unspecified R19.7 and Nausea with vomiting, unspecified R11.2 [facility] [id number] [place] [id number] Jan, [facility] [place] [id number], [place] [id number] Jan, [facility] [place] [address] [place] [id number] [place] [phone] Jan, Normal first confirmed, first trimester Z34.01 ; 13 weeks gestation of Z3A.13 ; Other specified bacterial agents as the cause of diseases classified elsewhere B96.89 ; Acute vaginitis N76.0 and Tobacco use affecting in first trimester, antepartum O99.331 [facility] [place] [address] [id number], [place] [id number] Nov, [facility] [place] [id number] [place] [id number] Sep, Generalized abdominal pain R10.84 and Intractable vomiting with nausea, unspecified vomiting type R11.2 [facility] [id number] [place] [address] [id number] Sep, [facility] [address] [id number], [place] [phone] Sep, Epigastric pain R10.13 [facility] [address] [id number], [place] [id number] Aug, Right upper quadrant abdominal pain R10.11 [facility] [address] [id number], [place] [id number] Jul, [facility] [address] [id number], [place] [phone] Jun, Diarrhea, unspecified R19.7 and Nausea with vomiting, unspecified R11.2 [facility] [address] [id number], [place] [id number] May, Epigastric pain R10.13 [facility] [place] [id number] [place] [address] [id number] May, Epigastric pain R10.13 [facility] [place] [id number] [place] [address] [id number] May, Epigastric pain R10.13 and Heart palpitations R00.2 [facility] [address] [id number], [place] [id number] April, [address]65100[place] [phone] April, Fatigue R53.83 and Epigastric pain R10.[address] [place] [address] [id number] Jan, GE (gastroenteritis) K52.9 and Acute upper respiratory infection, unspecified J06.9 [place] [id number] [place] [address] [id number] Jan, Sore throat J02.9 and Fever R50.9 [place] [id number] [place] [address] [id number] Dec, Encounter for initial prescription of contraceptive pills Z30.011 [place] [id number] [place] [address] [phone] Nov, Wheezing R06.2 ; Coughing R05 ; Spasmodic cough R05 ; Fever R50.9 and Post -nasal drip R09.[id number] [place] [id number] Oct, Nausea R11.0 ; Vomiting R11.10 and Fever R50.9 [place] [id number] [place] [address] [id number] Oct, Laryngitis J04.0 ; Encounter for immunization Z23 and Cough R05 [place] [id number] [place] [address] [id number] Sep, Encounter for immunization Z23 ; Sinusitis, acute frontal J01.10 and Acute laryngitis J04.[address] [id number], [place] [id number] Jul, Sore throat 462 ; Fever 780.60 and Cough 786.[address] [place] [address] [phone] Jun, GARDASIL (HPV) DX V04.89 [place] [id number] [place] [address] [id number] May, Esophageal reflux 530.81 and GARDASIL (HPV) DX V04.89 [facility] [place] [address] [facility] [address] [id number], [place] [id number] April, Pharyngitis 462 and Bronchitis 490 [facility] [address] [facility] [id number], [place] [address] Mar, [facility] [address] [facility] [id number] [address]- [address] Mar, [facility] [address] [facility] [id number], [place] [address] Sep, [facility] [address] [facility] [id number], [place] [address]- [address]71 Sep, [facility] [address] [facility] [id number], [place] [address]- [address] Jun, [facility] [address] [place] [id number], [place] [address] 38[address] Jun, [facility] [address] [place] [id number], [place] [address] April, [facility] [address] [place] [id number], [place] [address] April, [facility] [address] [place] [id number], [place] [address]- [address]53 Aug, [facility] [address] [facility] [id number] [address]- 27[address] Aug, [facility] [address] [place] [id number], [place] [address]- 9232 Aug, [facility] [address] [place] [id number], [place] [address]- [address] 07 Aug, 2013 [facility] [address] [facility] [id number][place] [address]- [address] Jul, [facility] [address] [facility] [id number] [address] Mar, [facility] [address] [facility] [id number] [place] [address]- 79[address] Mar, [facility] [address] [place] [id number], [place] [address]- 1057 Dec, [facility] [address]00565100[place], [place] [address] Oct, [facility] [address] [place] [id number], [place] [address]- 8088 Oct, [facility] [address]00565100[place], [place] [address] Jul, [facility] [address] [place] [id number], [place] [address] May, IMMUNIZATIONS No Known Immunizations SOCIAL HISTORY Never Assessed REASON FOR VISIT triage - CBowmanRN PLAN OF CARE VITAL SIGNS MEDICATIONS No [...]
--- OUTSIDE RECORDS SUMMARY | 2019-04-10 05:58 | XMS REPORT ---
Author Author ALOK LEE Organization [facility] Address [address] [place] [address] Care Team Providers Care Filling Hauler Weaving Name Role Phone ALOK LEE Unavailable PROBLEMS Type Condition ICD9-CM Code CGZ00-NB Code Onset Dates Condition Status SNOMED Code Problem Marijuana use F12.10 Active 65325168 Problem Gastroesophageal reflux disease, esophagitis presence not specified K21.9 Active 157584365 Problem Mild intermittent asthma without complication J45.20 Active 609508330 Problem Tobacco use disorder F17.200 Active 614763152 ALLERGIES No Information SOCIAL HISTORY Never Assessed PLAN OF CARE VITAL SIGNS MEDICATIONS Unknown Medications RESULTS No Results PROCEDURES No Known procedures IMMUNIZATIONS No Known Immunizations MEDICAL (GENERAL) HISTORY Type Description Date Medical History Esophageal reflux Medical History Asthma Medical History Chronic Constipation Medical History Lactose Intolerance Medical History Hematologic Disorder High Platelets Surgical History cholecystectomy ([facility]) 08/21/16 Hospitalization History childbirth
--- OUTSIDE RECORDS SUMMARY | 2019-04-10 05:58 | XMS REPORT ---
Author Author IGNACIA GREY [facility] Address [address] [place] [address] Care Team Providers Care Conservation Science Teacher Name Role Phone IGNACIA GREY Unavailable PROBLEMS Type Condition ICD9-CM Code NBZ78-AB Code Onset Dates Condition Status SNOMED Code Problem Marijuana use F12.10 Active 16965631 Problem Gastroesophageal reflux disease, esophagitis presence not specified K21.9 Active 578121252 Problem Mild intermittent asthma without complication J45.20 Active 975568578 Problem Tobacco use disorder F17.200 Active 829577595 ALLERGIES No Known Allergies SOCIAL HISTORY Never Assessed PLAN OF CARE Activity Details Follow Up 2 Weeks Reason:n/v/d VITAL SIGNS Height 62 in 2017-02-16 Weight 126.1 lbs 2017-02-16 Temperature 97.6 degrees Fahrenheit 2017-02-16 Heart Rate 88 bpm 2017-02-16 Respiratory Rate 16 2017-02-16 BMI 23.06 kg/m2 2017-02-16 Blood pressure systolic 102 mmHg 2017-02-16 Blood pressure diastolic 54 mmHg 2017-02-16 MEDICATIONS Medication Instructions Dosage Frequency Start Date End Date Duration Status Dicyclomine HCl 10 mg Orally Four times a day 1 capsules ac hs 6h JanMar, 30 day(s) Active RESULTS No Results PROCEDURES No Known procedures IMMUNIZATIONS No Known Immunizations MEDICAL (GENERAL) HISTORY Type Description Date Medical History Esophageal reflux Medical History Asthma Medical History Chronic Constipation Medical History Lactose Intolerance Medical History Hematologic Disorder High Platelets Surgical History cholecystectomy ([facility]) 08/21/16 Hospitalization History childbirth
--- OUTSIDE RECORDS SUMMARY | 2019-04-10 05:58 | XMS REPORT | Continuity of Care Document ---
Author Organization Unknown Address Unknown Allergies There is no data. Medications There is no data. Problems Date Dx Coded Attending Type Code Diagnosis Diagnosed By 05/12/2009 V20.2 visit for: well child visit 05/12/2009 V20.2 visit for: well child visit 05/12/2009 LA FLORES, JAMEEL V20.2 visit for: well child visit 05/12/2009 V20.2 visit for: well child visit 05/12/2009 STEVEN STERN DO V20.2 visit for: well child visit 05/12/2009 STEVEN STERN DO V20.2 visit for: well child visit 05/12/2009 ROD FLORES, VASQUEZ Gomes V20.2 visit for: well child visit 05/12/2009 CASIE CASIANO APRN V20.2 visit for: well child visit 05/12/2009 MAX PEARSON APRN V20.2 visit for: well child visit 05/04/2010 V01.84 MENINGOCOCCAL VACCINE 05/04/2010 V05.3 HEPATITIS VIRAL/ALL 05/04/2010 V06.5 DT, TETANUS- DIPHTHERIA [Td] ,TDAP 05/04/2010 V01.84 MENINGOCOCCAL VACCINE 05/04/2010 V05.3 HEPATITIS VIRAL/ALL 05/04/2010 V06.5 DT, TETANUS- DIPHTHERIA [Td] ,TDAP 05/04/2010 JAMEEL TOVAR MD V01.84 MENINGOCOCCAL VACCINE 05/04/2010 JAMEEL TOVAR MD V05.3 HEPATITIS VIRAL/ALL 05/04/2010 JAMEEL TOVAR MD V06.5 DT, TETANUS-DIPHTHERIA [Td] ,TDAP 05/04/2010 V01.84 MENINGOCOCCAL VACCINE 05/04/2010 V05.3 HEPATITIS VIRAL/ALL 05/04/2010 V06.5 DT, TETANUS- DIPHTHERIA [Td] ,TDAP 05/04/2010 STEVEN STERN DO V01.84 [...] S V06.5 DT, TETANUS-DIPHTHERIA [Td] ,TDAP 05/04/2010 [facility] ARTISTSIGIFREDO MimsSON L V01.84 MENINGOCOCCAL VACCINE 05/04/2010 [facility] ARTISTCASIE Mims L V05.3 HEPATITIS VIRAL/ALL 05/04/2010 [facility] ARTISTCASIE Mims L V06.5 DT, TETANUS-DIPHTHERIA [Td] ,TDAP 05/04/2010 ARTURO BELTRANERO COMMUNITY ARTIST, MAX N V01.84 MENINGOCOCCAL VACCINE 05/04/2010 MORRISPRIMO BELTRANERO COMMUNITY ARTISTEUFEMIA MimsCY N V05.3 HEPATITIS VIRAL/ALL 05/04/2010 MORRIS CASHERO COMMUNITY ARTIST, MAX N V06.5 DT, TETANUS-DIPHTHERIA [Td] ,TDAP 07/18/2011 132.0 PEDICULOSIS CAPITIS 07/18/2011 132.0 PEDICULOSIS CAPITIS 07/18/2011 JAMEEL TOVAR MD 132.0 PEDICULOSIS CAPITIS 07/18/2011 132.0 PEDICULOSIS CAPITIS 07/18/2011 STERN DO, STEVEN K 132.0 PEDICULOSIS CAPITIS 07/18/2011 STERN DO, STEVEN K 132.0 PEDICULOSIS CAPITIS 07/18/2011 ROD FLORES, VASQUEZ S 132.0 PEDICULOSIS CAPITIS 07/18/2011 CSAIE CASIANO APRN 132.0 PEDICULOSIS CAPITIS 07/18/2011 MAX [...] FLORES, VASQUEZ S 493.00 ASTHMA EXTRINSIC 07/22/2013 STEPHENIE GUZMÁN CASIE L 372.00 CONJUNCTIVITIS ACUTE BOTH EYES 07/22/2013 EATCORY GUZMÁN CASIE L 493.00 ASTHMA EXTRINSIC 07/22/2013 EUFEMIA PEARSON APRNCY N 372.00 CONJUNCTIVITIS ACUTE BOTH EYES 07/22/2013 EUFEMIA PEARSON APRNCY N 493.00 ASTHMA EXTRINSIC 08/20/2013 STERN DO, STEVEN K 599.0 URINARY TRACT INFECTION 08/20/2013 STERN DO, STEVEN K 599.0 URINARY TRACT INFECTION 08/20/2013 ROD FLORES, VASQUEZ Gomes 599.0 URINARY TRACT INFECTION 08/20/2013 CASIE CASIANO APRN L 599.0 URINARY TRACT INFECTION 08/20/2013 MAX PEARSON APRN N 599.0 URINARY TRACT INFECTION 08/24/2013 STEVEN STERN DO 530.81 GERD 08/24/2013 ROD FLORES, VASQUEZ S 530.81 GERD 08/24/2013 SIGIFREDO CASIANO APRNSON L 530.81 GERD 08/24/2013 ARTURO GILMORE APRFelicita MAX N 530.81 GERD 04/29/2014 ROD FLORES, VASQUEZ S 692.6 POISON BEATRICE 04/29/2014 STEPHENIE GUZMÁN CASIE L 692.6 POISON BEATRICE 04/29/2014 ARTURO GILMORE APRFelicita MAX N 692.6 POISON BEATRICE 06/29/2014 STEPHENIE MCDONALDFelicita CASIE L 305.1 TOBACCO ABUSE 06/29/2014 STEPHENIE GUZMÁN CASIE L 466.19 ACUTE BRONCIOLITIS DUE TO OTHER INFECTIOUS ORGANISMS 06/29/2014 ARTURO GILMORE APRN MAX N 305.1 TOBACCO ABUSE 06/29/2014 MORRIS DEIRDRE MCDONALDFelicita MAX N 466.19 ACUTE BRONCIOLITIS DUE TO OTHER INFECTIOUS ORGANISMS 09/14/2014 MORRIS DEIRDRE MCDONALDFelicita MAX N 478.19 OTHER DISEASES OF NASAL CAVITY AND SINUSES 09/14/2014 MORRIS DEIRDRE MCDONALDFelicita MAX N 786.2 COUGH Procedures Code [place] [address] INFLUENZA A & B (IN-HOUSE) 12/25/2012 22216 THERAPUTIC INJ SQ/IM 03/09/2013 J2930 SOLUMEDROL INJ 03/09/2013 87530 UA LONG DIP 08/20/2013 65961 CULTURE URINE 08/22/2013 21423 THERAPUTIC INJ SQ/IM 04/29/2014 J1030 DEPO MEDROL 40 MG INJ 04/29/2014 37366 NEBULIZER TREATMENT 06/29/2014 05916 STREP A (IN-HOUSE) 06/29/2014 36214 OXIMETRY 06/29/2014 J7613 ALBUTEROL UNIT DOSE FORM INHALED 06/29/2014 12726 TEST, URINE (IN- HOUSE) 09/14/2014 Results Test Result Range CULTURE, GROUP B STREP (VAGINAL) - 07/24/17 15:40 STREPTOCOCCUS, GROUP B CULTURE SEE NOTE NRG GC/CHLAMYDIA (SWAB OR URINE)-RAPID - 11/05/17 18:27 CHLAMYDIA TRACHOMATIS RNA, TMA NOT DETECTED NOT DETECTED NEISSERIA GONORRHOEAE RNA, TMA NOT DETECTED NOT DETECTED COMMENT NRG CBC - 02/23/19 11:30 WHITE BLOOD CELL COUNT 15.5 Thousand/uL 3.8-10.8 RED BLOOD CELL COUNT 3.78 Million/uL 3.80-5.10 HEMOGLOBIN 11.9 g/dL 11.7-15.5 HEMATOCRIT 34.7 % 35.0-45.0 MCV 91.8 fL 80.0-100.0 MCH 31.5 pg 27.0-33.0 MCHC 34.3 g/dL 32.0-36.0 RDW 12.1 % 11.0-15.0 PLATELET COUNT 449 Thousand/uL 140-400 MPV 10.1 fL 7.5-12.5 ABSOLUTE NEUTROPHILS 36680 cells/uL 6736-8766 ABSOLUTE LYMPHOCYTES 2434 cells/uL 850-3900 ABSOLUTE MONOCYTES 1008 cells/uL 200-950 ABSOLUTE EOSINOPHILS 109 cells/uL 15-500 ABSOLUTE BASOPHILS 62 cells/uL 0-200 NEUTROPHILS 76.7 % NRG LYMPHOCYTES 15.7 % NRG MONOCYTES 6.5 % NRG EOSINOPHILS 0.7 % NRG BASOPHILS 0.4 % NRG CULTURE, GROUP B STREP (VAGINAL) - 03/10/19 11:04 STREPTOCOCCUS, GROUP B CULTURE NRG Encounters ACCT No. Visit Date/Time Discharge Status Pt. Type Provider Facility Loc./Unit Complaint [id number] 09/14/2014 18:22:00 09/14/2014 23:59:59 CLS Outpatient MAX PEARSON APRN [id number] 06/29/2014 13:41:00 06/29/2014 23:59:59 CLS Outpatient CASIE CASIANO APRN [id number] 04/29/2014 15:21:00 04/29/2014 23:59:59 CLS Outpatient ROD FLORES, VASQUEZ S [id number] 08/24/2013 11:16:00 08/24/2013 23:59:59 CLS Outpatient STEVEN STERN DO [id number] 08/20/2013 15:09:00 08/20/2013 23:59:59 CLS Outpatient STEVEN STERN DO [id number] 03/09/2013 11:16:00 03/09/2013 23:59:59 CLS Outpatient JAMEEL TOVAR MD [id number] 12/25/2012 13:54:00 12/25/2012 23:59:59 CLS Outpatient [id number] 07/18/2011 13:39:00 07/18/2011 23:59:59 CLS Outpatient [id number] 07/22/2013 09:57:00 Document Registration [id number] 03/30/2019 09:00:00 ACT Outpatient [facility] [id number] 03/10/2019 10:30:00 Document Registration [id number] 02/23/2019 10:45:00 Document Registration [id number] 11/05/2017 17:40:00 Document Registration [id number] 07/24/2017 14:40:00 Document Registration
--- OUTSIDE RECORDS SUMMARY | 2019-04-10 05:58 | XMS REPORT ---
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 Name Role Phone CASIE CASIANO Unavailable PROBLEMS Type Condition ICD9-CM Code WIW52-BO Code Onset Dates Condition Status SNOMED Code Problem Tobacco use disorder F17.200 Active 393772767 Problem Gastroesophageal reflux disease, esophagitis presence not specified K21.9 Active 329643693 Problem Mild intermittent asthma without complication J45.20 Active 069189776 Problem Generalized anxiety disorder F41.1 Active 06788753 Problem Vaginal discharge N89.8 Active 808511094 Problem Irritable mood R45.4 Active 63217379 Problem Marijuana use F12.10 Active 09443501 Problem Bipolar disorder, in partial remission, most recent episode hypomanic F31.71 Active 280359802 Problem Dysthymic disorder F34.1 Active 72705918 ALLERGIES No Known Allergies ENCOUNTERS Encounter Location Date Diagnosis [address] [id number] [id number] April, Dental examination Z01.20 [facility] [address] [id number][place] [id number] Nov, [address] [id number][place] [id number] Nov, Generalized anxiety disorder F41.1 and Other mental disorders complicating the puerperium O99.345 [facility] [address] [facility] [id number] [id number] Nov, Vaginal discharge N89.8 [place] [address] [facility] [id number][place] [id number] Nov, Irritable mood R45.4 and Bipolar disorder, in partial remission, most recent episode hypomanic F31.[address] [id number][place] [id number] Nov, [address] [id number], [place] [id number] Oct, Dysthymic disorder F34.1 and Irritable mood R45.4 [place] [address] [place] [id number] [place] [address] Oct, [place] [address] [address] Oct, [place] [address] [address] Sep, care and examination Z39.2 and Encounter for Depo -Provera contraception Z30.42 [place] [address] [id number] [place] [address]47- 2862 Sep, [place] [address] [address] Aug, [place] [address] [id number] [place] [address]35- 1155 Aug, hemorrhage, unspecified type O72.1 and Marijuana use F12.10 [place] [address] [id number] [place] [address] Aug, Third trimester Z34.93 and 39 weeks gestation of Z3A.[address] [id number], [place] [id number] Aug, Third trimester Z34.93 ; 38 weeks gestation of Z3A.38 and High risk teen in third trimester O09.[address] [id number], [place] [id number] Jul, Normal first in second trimester Z34.02 [facility] [address] [id number][place] [id number] Jul, Normal in third trimester Z34.93 and 36 weeks gestation of Z3A.36 [facility] [address] [facility] [id number][place] [id number] Jul, [facility] [id number] [place] [id number] Jul, [facility] [address] [facility] [address] [id number], [place] [id number] Jul, Third trimester Z34.93 ; High risk teen in third trimester O09.893 and 34 weeks gestation of Z3A.34 [facility] [place] [address] [facility] [address] [id number], [place] [id number] Jun, Encounter for immunization Z23 ; Third trimester Z34.93 and 32 weeks gestation of Z3A.32 [facility] [id number], [place] [id number] Jun, [facility] [id number] [place] [id number] April, [facility] [address] [place] [id number] [place] [id number] April, Normal first in second trimester Z34.02 and 20 weeks gestation of Z3A.20 [facility] [id number] [place] [address]07- 3746 Mar, Normal first in second trimester Z34.02 [facility] [address]00565100[place] [id number] Mar, [facility] [id number] [place] [address]80- 2516 Mar, [facility] [address] [id number] [place] [address] 62805- 2546 Mar, 16 weeks gestation of Z3A.16 and Normal first in second trimester Z34.02 [facility] [place] [address] [facility] [address] [id number], [place] [id number] Jan, Normal first confirmed, first trimester Z34.01 ; Diarrhea, unspecified R19.7 and Nausea with vomiting, unspecified R11.2 [facility] [id number], [place] [id number] Jan, [facility] [id number], [place] [id number] Jan, [facility] [address] [address] [id number] [place] [address] [id number] Jan, Normal first confirmed, first trimester Z34.01 ; 13 weeks gestation of Z3A.13 ; Other specified bacterial agents as the cause of diseases classified elsewhere B96.89 ; Acute vaginitis N76.0 and Tobacco use affecting in first trimester, antepartum O99.331 [facility] [address] [id number], [place] [id number] Nov, [facility] [id number] [place] [address] [id number] Sep, Generalized abdominal pain R10.84 and Intractable vomiting with nausea, unspecified vomiting type R11.2 [facility] [address] [id number] [place] [address] [id number] Sep, [facility] [address] [id number] [place] [address] [id number] Sep, Epigastric pain R10.13 [facility] [address] [id number], [place] [id number] Aug, Right upper quadrant abdominal pain R10.11 [facility] [place] [address] [facility] [id number], [place] [id number] Jul, [facility] [address] [id number], [place] [id number] Jun, Diarrhea, unspecified R19.7 and Nausea with vomiting, unspecified R11.2 [facility] [address] [id number], [place] [id number] May, Epigastric pain R10.13 [facility] [id number] [place] [address] [id number] May, Epigastric pain R10.13 [facility] [id number] [place] [address] [id number] May, Epigastric pain R10.13 and Heart palpitations R00.2 [facility] [id number] [place] [address] [id number] April, [address] [place] [address] [id number] April, Fatigue R53.83 and Epigastric pain R10.13 [place] [id number] [place] [address] [id number] 17 Jan, 2016 GE (gastroenteritis) K52.9 and Acute upper respiratory infection, unspecified J06.[address] [id number] Jan, Sore throat J02.9 and Fever R50.9 [place] [id number] [place] [address] [id number] Dec, Encounter for initial prescription of contraceptive pills Z30.011 [place] [id number] [place] [id number] Nov, Wheezing R06.2 ; Coughing R05 ; Spasmodic cough R05 ; Fever R50.9 and Post -nasal drip R09.[id number] [place] [address] [id number] Oct, Nausea R11.0 ; Vomiting R11.10 and Fever R50.9 [place] [id number] [place] [address] [id number] Oct, Laryngitis J04.0 ; Encounter for immunization Z23 and Cough R05 [place] [id number] [place] [address] [id number] Sep, Encounter for immunization Z23 ; Sinusitis, acute frontal J01.10 and Acute laryngitis J04.[id number] [place] [address] [id number] Jul, Sore throat 462 ; Fever 780.60 and Cough 786.2 [place] [id number] [place] [address] [id number] Jun, GARDASIL (HPV) DX V04.89 [place] [id number] [place] [address] [id number] May, Esophageal reflux 530.81 and GARDASIL (HPV) DX V04.89 [facility] [address] [facility] [address] [id number][place] [id number] April, Pharyngitis 462 and Bronchitis 490 [facility] [address] [facility] [id number], [place] [address] Mar, [facility] [address] [facility] [id number], [place] [address] Mar, [facility] [address] [facility] [id number], [place] [address]- [address] Sep, [facility] [address] [facility] [id number] [place] [address] 65954- 4032 Sep, [facility] [address] [facility] [id number], [place] [address] Jun, [facility] [address] [place] [id number], [place] [address] Jun, [facility] [address] [place] [address] [id number], [place] [address] April, [facility] [address] [place] [address] [id number], [place] [address]- [address] April, [facility] [address] [place] [address] [id number], [place] [address]- [address] Aug, [facility] [address] [facility] [id number], [place] [address]- 1772 Aug, [facility] [address] [facility] [id number], [place] [address]- [address] 19 Aug, 2013 [facility] [address] [facility] [id number], [place] [address]- [address] 07 Aug, 2013 [facility] [address] [facility] [id number], [place] [address]- [address] Jul, [facility] [address] [place] [id number], [place] [address]- [address] Mar, [facility] [address] [facility] [id number], [place] [address]- 2546 Mar, [facility] [address] [facility] [id number], [place] [address]- 9[address] Dec, [facility] [address] [facility] [id number], [place] [address]- 4[address] Oct, [facility] [address] [facility] [id number], [place] [address]- 2546 Oct, [facility] [address] [facility] [id number], [place] [address]- 67[address] Jul, [facility] [address] [facility] [id number], [place] [address] May, IMMUNIZATIONS No Known Immunizations SOCIAL HISTORY Never Assessed REASON FOR VISIT vagnial discharge-c/o "poop discharge" from vagina, x 2 weeks, voices it smells like hamburger meat. [place] PLAN OF CARE Activity Details Follow Up prn Reason: VITAL SIGNS Height 62 in 2017-11-05 Weight 132.0 lbs 2017-11-05 Temperature 99.9 degrees Fahrenheit 2017-11-05 Heart Rate 80 bpm 2017-11-05 Respiratory Rate 18 2017-11-05 BMI 24.14 kg/m2 2017-11-05 Blood pressure systolic 110 mmHg 2017-11-05 Blood pressure diastolic 72 mmHg 2017-11-05 MEDICATIONS Medication Instructions Dosage Frequency Start Date End Date Duration Status Zoloft 25 MG Orally Once a day 1 tablet 24h Oct, 30 day(s) Not -Taking - Orally Once a day 1 tablet 24h Not-Taking RESULTS No Results PROCEDURES Procedure Date Ordered Result Body Site URINALYSIS, AUTO, W/O SCOPE Nov 05, 2017 URINE TEST Nov 05, 2017 Bacterial Vaginosis In House Nov 05, 2017 LAB NOT BILLED BY [facility] Nov 05, 2017 INSTRUCTIONS MEDICATIONS ADMINISTERED No Known Medications MEDICAL (GENERAL) HISTORY Type Description Date Medical History Esophageal reflux Medical History Asthma Medical History Chronic Constipation Medical History Lactose Intolerance Medical History Hematologic Disorder High Platelets Medical History [place] Medical History Bronchitis Medical History Anemia Medical History Hives Surgical History cholecystectomy ([facility]) 08/21/16 Hospitalization History childbirth
--- OUTSIDE RECORDS SUMMARY | 2019-04-10 05:58 | XMS REPORT ---
Author Author CAET ARELLANO [facility] Address Unknown Phone Unavailable Care Team Providers Care Bag Sorter Name Role Phone SARAHCHELSEY CATE Unavailable Unavailable PROBLEMS Type Condition ICD9-CM Code UGS44-UV Code Onset Dates Condition Status SNOMED Code Problem Tobacco use disorder F17.200 Active 826655294 Problem Gastroesophageal reflux disease, esophagitis presence not specified K21.9 Active 163528671 Problem Mild intermittent asthma without complication J45.20 Active 861622258 Problem Generalized anxiety disorder F41.1 Active 40154128 Problem Vaginal discharge N89.8 Active 440999089 Problem Irritable mood R45.4 Active 71800201 Problem Marijuana use F12.10 Active 83547879 Problem Bipolar disorder, in partial remission, most recent episode hypomanic F31.71 Active 026704555 Problem Dysthymic disorder F34.1 Active 80354522 ALLERGIES No Information ENCOUNTERS Encounter Location Date Diagnosis [address] [id number] [id number] April, Dental examination Z01.20 [facility] [address] [id number][place] [phone] Nov, [place] [address] [facility] [id number][place] [id number] Nov, Generalized anxiety disorder F41.1 and Other mental disorders complicating the puerperium O99.345 [facility] [address] [facility] [facility] [facility] [id number][place] [id number] Nov, Vaginal discharge N89.8 [facility] [address] [facility] [id number] [place] [id number] Nov, Irritable mood R45.4 and Bipolar disorder, in partial remission, most recent episode hypomanic F31.71 [facility] [address] [facility] [id number][place] [id number] Nov, [place] [address] [facility] [address] [id number][place] [phone] Oct, Dysthymic disorder F34.1 and Irritable mood R45.4 [place] [address] [address] Oct, [facility] [address] [place] [address] Oct, [place] [address] [place] [id number] [place] [address] Sep, care and examination Z39.2 and Encounter for Depo -Provera contraception Z30.42 [place] [address] [place] [id number] [place] [address] Sep, [place] [address] [place] [address] Aug, [place] [address] [place] [id number] [place] [address] Aug, hemorrhage, unspecified type O72.1 and Marijuana use F12.10 [place] [address] [place] [address]17 Aug, Third trimester Z34.93 and 39 weeks gestation of Z3A.[address] [id number], [place] [id number] Aug, Third trimester Z34.93 ; 38 weeks gestation of Z3A.38 and High risk teen in third trimester O09.893 [facility] [address] [facility] [facility] [id number], [place] [phone] Jul, Normal first in second trimester Z34.[address] [id number], [place] [id number] Jul, Normal in third trimester Z34.93 and 36 weeks gestation of Z3A.36 [facility] [id number] [place] [id number] Jul, [facility] [address] [id number][place] [phone] Jul, [facility] [address] [facility] [address] [id number], [place] [id number] Jul, Third trimester Z34.93 ; High risk teen in third trimester O09.893 and 34 weeks gestation of Z3A.34 [facility] [address] [facility] [address] [id number], [place] [phone] Jun, Encounter for immunization Z23 ; Third trimester Z34.93 and 32 weeks gestation of Z3A.32 [facility] [address] [id number][place] [phone] Jun, [facility] [id number] [place] [id number] April, [facility] [id number], [place] [phone] April, Normal first in second trimester Z34.02 and 20 weeks gestation of Z3A.20 [facility] [address] [address] Mar, Normal first in second trimester Z34.02 [facility] [id number], [place] [id number] Mar, [facility] [address] [id number] [address] Mar, [facility] [id number] [place] [address] Mar, 16 weeks gestation of Z3A.16 and Normal first in second trimester Z34.02 [facility] [address] [facility] [address] [id number], [place] [phone] Jan, Normal first confirmed, first trimester Z34.01 ; Diarrhea, unspecified R19.7 and Nausea with vomiting, unspecified R11.2 [facility] [id number], [place] [phone] Jan, [facility] [id number] [place] [id number] Jan, [facility] [id number], [place] [id number] Jan, Normal first confirmed, first trimester Z34.01 ; 13 weeks gestation of Z3A.13 ; Other specified bacterial agents as the cause of diseases classified elsewhere B96.89 ; Acute vaginitis N76.0 and Tobacco use affecting in first trimester, antepartum O99.331 [facility] [id number] [place] [id number] Nov, [facility] [address] [id number] [place] [address] [id number] Sep, Generalized abdominal pain R10.84 and Intractable vomiting with nausea, unspecified vomiting type R11.2 [facility] [id number] [place] [id number] Sep, [facility] [id number] [place] [address] [id number] Sep, Epigastric pain R10.13 [facility] [id number], [place] [id number] Aug, Right upper quadrant abdominal pain R10.[address] [id number], [place] [id number] Jul, [facility] [id number], [place] [id number] Jun, Diarrhea, unspecified R19.7 and Nausea with vomiting, unspecified R11.2 [facility] [address] [id number], [place] [id number] May, Epigastric pain R10.13 [facility] [address] [id number] [place] [address] [id number] May, Epigastric pain R10.13 [facility] [id number] [place] [address] [id number] May, Epigastric pain R10.13 and Heart palpitations R00.2 [facility] [id number] [place] [address] [id number] April, [facility] [id number] [place] [address] [id number] April, Fatigue R53.83 and Epigastric pain R10.13 [address] [place] [address] [id number] Jan, GE (gastroenteritis) K52.9 and Acute upper respiratory infection, unspecified J06.9 [place] [id number] [place] [address] [id number] Jan, Sore throat J02.9 and Fever R50.[address] [id number] Dec, Encounter for initial prescription of contraceptive pills Z30.011 [place] [id number] [place] [address] [id number] Nov, Wheezing R06.2 ; Coughing R05 ; Spasmodic cough R05 ; Fever R50.9 and Post -nasal drip R09.[id number] [place] [id number] Oct, Nausea R11.0 ; Vomiting R11.10 and Fever R50.9 [place] [id number] [place] [address] [id number] Oct, Laryngitis J04.0 ; Encounter for immunization Z23 and Cough R05 [place] [id number] [place] [address] [id number] Sep, Encounter for immunization Z23 ; Sinusitis, acute frontal J01.10 and Acute laryngitis J04.[address] [id number], [place] [id number] Jul, Sore throat 462 ; Fever 780.60 and Cough 786.[address] [place] [address] [id number] Jun, GARDASIL (HPV) DX V04.89 [place] [id number] [place] [address] [id number] May, Esophageal reflux 530.81 and GARDASIL (HPV) DX V04.[id number] [place] [address] [id number] April, Pharyngitis 462 and Bronchitis 490 [facility] [place] [facility] [address] [id number] [place] [address] 14 Mar, 2015 [facility] [address] [facility] [id number] [place] [address] Mar, [facility] [address] [facility] [id number] [place] [address] Sep, [facility] [address] [id number] [place] [address] Sep, [facility] [address] [facility] [id number] [place] [address], [place] [address] Jun, [facility] [address] [facility] [id number] [place] [address] Jun, [facility] [address] [id number] [place] [address] April, [facility] [address] [id number] [place] [address] April, [facility] [address] [id number] [place] [address]- [address] Aug, [facility] [address] [facility] [id number] [address] Aug, [facility] [address] [facility] [id number] [place] [address]- [address] 19 Aug, 2013 [facility] [address] [facility] [id number] [place] [address]- [address] 07 Aug, 2013 [facility] [address] [facility] [id number] [place] [address]- 5[address] Jul, [facility] [address] [facility] [id number] [place] [address]- [address] 11 Mar, 2013 [facility] [address] [facility] [id number] [place] [address] 6[address] Mar, [facility] [address] [facility] [id number] [place] [address] Dec, [facility] [address] [id number] [address] Oct, [facility] [address] [facility] [id number] [address]- [address] Oct, [facility] [address] [id number] [address] Jul, [facility] [address] [facility] [id number] [place] [address] May, IMMUNIZATIONS No Known Immunizations SOCIAL HISTORY Never Assessed REASON FOR VISIT f/u PLAN OF CARE Activity Details Follow Up 2 weeks approx. Reason:frustration tolerance, mood and affect disturbance VITAL SIGNS MEDICATIONS No Known Medications RESULTS No Results PROCEDURES Procedure Date Ordered Result Body Site Psychotherapy, patient &/family, 30 minutes, established patient Nov 05, 2017 INSTRUCTIONS MEDICATIONS ADMINISTERED No Known Medications MEDICAL (GENERAL) HISTORY Type Description Date Medical History Esophageal reflux Medical History Asthma Medical History Chronic Constipation Medical History Lactose Intolerance Medical History Hematologic Disorder High Platelets Medical History [place] Medical History Bronchitis Medical History Anemia Medical History Hives Surgical History cholecystectomy ([facility]) 08/21/16 Hospitalization History childbirth
[2019-04-10] MEDS ORDERED: CATHETER FLUSH 10 ML SYR IV SCH ×2 (06:00→14:00)
[2019-04-10 06:24] LABS: BASOPHILS % (AUTO) 0 % (0-10); EOSINOPHILS # (AUTO) 0.1 10^3/uL (0.0-0.3); EOSINOPHILS % (AUTO) 0 % (0-10); HEMATOCRIT 35 % (35-52); LYMPHOCYTES # (AUTO) 2.5 X 10^3 (1.0-4.0); LYMPHOCYTES % (AUTO) 14 % (12-44); MEAN CORPUSCULAR HEMOGLOBIN 31 PG (25-34); MEAN CORPUSCULAR HGB CONC 34 G/DL (32-36); MEAN CORPUSCULAR VOLUME 90 FL (80-99); MEAN PLATELET VOLUME 10.5 FL (7.4-10.4); MONOCYTES # (AUTO) 1.4 X 10^3 (0.0-1.0); MONOCYTES % (AUTO) 8 % (0-12); NEUTROPHILS # (AUTO) 14.2 X 10^3 (1.8-7.8); NEUTROPHILS % (AUTO) 78 % (42-75); PLATELET COUNT 432 10^3/uL (130-400); RED CELL DISTRIBUTION WIDTH 13.1 % (10.0-14.5); WHITE BLOOD COUNT 18.2 10^3/uL (4.3-11.0)
--- NOTE | 2019-04-10 06:51 | History & Physical-OB ---
OB - Chief Complaint & HPI Date/Time Date of Admission: Date of Admission: April 10, 2019 at 05:50 Date seen by a Provider: April 10, 2019 Time Seen by a Provider: 06:48 Chief Complaint/History OB-Reason for Admission/Chief: Onset of Labor Hx : 2 Hx Para: 1 Gestational Age in Weeks: 40 Gestational Age in Days: 3 Admission Nurse Assessment Rev: Yes Allergies and Home Medications Allergies Coded Allergies: No Known Drug Allergies (Unverified , 05/15/11) Home Medications Ibuprofen 600 Mg Tablet, 600 MG PO Q6H PRN for PAIN-MILD TO MODERATE Prescribed by: ALOK LEE on 08/23/17 0858 Patient Home Medication List Home Medication List Reviewed: Yes OB - History Hx of Present Care: Yes Ultrasounds: Normal mid trimester US Obstetrical Complications: None Medical Complications: Other (sciatica of right leg) Patient Past Medical History Chronic Abdominal Pain MJ Substance Use Social History/Family History HIV/AIDS: No Immunizations Tetanus Booster (TDap): Less than 5yrs OB - Admission Exam Physical Exam HEENT: NCAT Heart: Rhythm Normal Lungs: Clear Abdomen: Gravid Extremities: Normal Reflexes: Normal Cervical Dilatation: 7cm Effacement: 100% Station: -2 Membranes: Intact Heart Rate: 130's Accelerations: Accelerations Present Decelerations: No Decelerations Short Term Variability: Present Community Health Worker Variability: Average (6-25) Contractions on Admission: < 5 Minutes Apart Intensity: Firm Labs Laboratory Tests Test 04/10/19 06:10 Range/Units White Blood Count 18.2 H 4.3-11.0 10^3/uL Red Blood Count 3.93 L 4.35-5.85 10^6/uL Hemoglobin 12.0 11.5-16.0 G/DL Hematocrit 35 35-52 % Mean Corpuscular Volume 90 80-99 FL Mean Corpuscular Hemoglobin 31 25-34 PG Mean Corpuscular Hemoglobin Concent 34 32-36 G/DL Red Cell Distribution Width 13.1 10.0-14.5 % Platelet Count 432 H 130-400 10^3/uL Mean Platelet Volume 10.5 H 7.4-10.4 FL Neutrophils (%) (Auto) 78 H 42-75 % Lymphocytes (%) (Auto) 14 12-44 % Monocytes (%) (Auto) 8 0-12 % Eosinophils (%) (Auto) 0 0-10 % Basophils (%) (Auto) 0 0-10 % Neutrophils # (Auto) 14.2 H 1.8-7.8 X 10^3 Lymphocytes # (Auto) 2.5 1.0-4.0 X 10^3 Monocytes # (Auto) 1.4 H 0.0-1.0 X 10^3 Eosinophils # (Auto) 0.1 0.0-0.3 10^3/uL Basophils # (Auto) 0.0 0.0-0.1 10^3/uL OB - Assessment/Plan/Diagnosis Assessment Assessment: active labor Admission Dx Normal labor. Admission Status: Inpatient Order (span 2 midnights) Reason for Inpatient Admission: Term labor. Plan Plan: Expectant Management Induction Method: LUCY JARAMILLO MD April 10, 2019 06:51
--- NOTE | 2019-04-10 07:03 | NUR ---
ht wt not obtained, r/t pt condition
[2019-04-10] MEDS ORDERED: OXYTOCIN/NORMAL SALINE 500 ML IV ONE (07:23)
[2019-04-10] MEDS ORDERED: SUFENTA 0.6MCG/ML BUPIVA 0.125 100 ML ONE (07:45)
[2019-04-10] MEDS ORDERED: fentaNYL INJECTION 100 MCG/2 ML AMP ONE (08:27)
[2019-04-10] MEDS ORDERED: BUPIVACAINE 0.25% 30 ML (SENSORCAINE) VIAL ONE (08:27)
[2019-04-10] MEDS ORDERED: LIDOCAINE PF 2% 5 ML (XYLOCAINE) VIAL ONE (08:46)
--- NOTE | 2019-04-10 09:02 | NUR ---
0902: DELIVERY OF HEAD 0903: SPONTANEOUS VAGINAL DELIVERY OF VIABLE FEMALE BY DR ALVARADO, NUCHAL X3, THICK MEC, NO LACERATION, 250 EBL. SOFIYA QUINTANA RT AT BEDSIDE FOR INFANT EVALUATION. INFANT PLACED ON MOTHERS ABDOMEN, CRYING. 0904: CORD CLAMPED AND CUT BY 0907: SPONTANEOUS DELIVERY OF PLACENTA, PITOCIN STARTED WIDE OPEN PER ORDER 0910: RECOVERY START TIME. FUNDUS FIRM, MIDLINE, 2 BELOW, SCANT BLEEDING. DENIES PAIN OR NEEDS AT THIS TIME. CALL LIGHT WITHIN REACH. RN REMAINS AT BEDSIDE. 0925: FUNDUS FIRM, MIDLINE, 2 BELOW, SCANT BLEEDING. DENIES PAIN OR NEEDS AT THIS TIME. CALL LIGHT WITHIN REACH. 0940:FUNDUS FIRM, MIDLINE, 2 BELOW, SCANT BLEEDING. DENIES PAIN OR NEEDS AT THIS TIME. CALL LIGHT WITHIN REACH. 0955:FUNDUS FIRM, MIDLINE, 2 BELOW, LIGHT BLEEDING. DENIES PAIN OR NEEDS AT THIS TIME. CALL LIGHT WITHIN REACH. 1010: FUNDUS FIRM, MIDLINE, 2 BELOW, LIGHT BLEEDING. DENIES PAIN OR NEEDS AT THIS TIME. CALL LIGHT WITHIN REACH. RECOVERY OFFICIALLY END AT THIS TIME. THIS TO DO PERICARE AND LINEN CHANGE. EPIDURAL PULLED OUT. PT TO WHEELCHAIR 1030: PT TRANSFER TO ROOM, PT AND SO TO NURSERY TO VISIT INFANT.
[2019-04-10] MEDS: OXYTOCIN/NORMAL SALINE 500 ML IV SCH ×2 (09:10→09:56)
--- NOTE | 2019-04-10 09:39 | OB Labor & Delivery Record ---
Vag Delivery Note Vag Delivery Note Date of Delivery: 04/10/19 Preoperative Diagnosis: Megan Pretty is a (18 /Para 2 / 1, Gestational Age (wks)40with [] Postoperative Diagnosis: Same Surgeon: LUCY ALVARADO Laser Printing Operator: [none] Anesthesia: [epidural] Delivery Type: [] Findings: [] Viable [female] infant, apgars [7/8], weight [7 pounds 13 ounces] Lacerations: Intact placenta with 3 vessel cord. 2 tight nuchal cord and one bandolier cord Estimated Blood Loss: [250] ml Complications: None Condition: Stable Description of Procedure: The patient is a 18 year old female who presented [in labor]. She was admitted and informed consent was obtained. Her labor course was remarkable for [thick meconium] She progressed to complete dilatation and began to push. She was then set up for delivery. The infant's head was delivered atraumatically in the [OA] position. The shoulders and remainder of the ' s body were then delivered without difficulty. Upon delivery, the head was held below the level of the perineum and the mouth and nares were bulb suctioned. The cord was doubly clamped and cut placed on maternal abdomen. An intact placenta with 3-vessel cord delivered via Narciso and there was found to be minimal bleeding.~ Vigorous fundal massage was performed and the fundus was found to be firm. IV oxytocin was given. Examination of the vagina and perineum revealed no lacerations. Following the repair, sponge, instrument and needle counts were correct. Mom in stable condition and infant in nursery for respiratory support. Vitals - Labs Vital Signs - I&O Vital Signs Date Time Temp Pulse Resp B/P (MAP) Pulse Ox O2 Delivery O2 Flow Rate FiO2 04/10/19 06:00 98.0 107 18 135/82 (99) 100 Labs Laboratory Tests 04/10/19 06:10: White Blood Count 18.2H, Red Blood Count 3.93L, Hemoglobin 12.0, Hematocrit 35, Mean Corpuscular Volume 90, Mean Corpuscular Hemoglobin 31, Mean Corpuscular Hemoglobin Concent 34, Red Cell Distribution Width 13.1, Platelet Count 432H, Mean Platelet Volume 10.5H, Neutrophils (%) (Auto) 78H, Lymphocytes (%) (Auto) 14, Monocytes (%) (Auto) 8, Eosinophils (%) (Auto) 0, Basophils (%) (Auto) 0, Neutrophils # (Auto) 14.2H, Lymphocytes # (Auto) 2.5, Monocytes # (Auto) 1.4H, Eosinophils # (Auto) 0.1, Basophils # (Auto) 0.0 LUCY ALAVRADO MD April 10, 2019 09:39
[2019-04-10] MEDS ORDERED: TETANUS,DIPTH,PERTUSS P/F (BOOSTRIX) 0.5 ML VIAL IM ONE (09:45)
[2019-04-10] MEDS ORDERED: WITCH HAZEL(TUCKS) 40 EA JAR TOP PRN (09:45)
[2019-04-10] MEDS ORDERED: BENZOCAINE/MENTHOL (DERMOPLAST) 56 ML CAN TP PRN (09:45)
[2019-04-10] MEDS ORDERED: MEASLES,MUMPS,RUBELLA 1 EA INJ SQ ONE (09:45)
[2019-04-10] MEDS: IBUPROFEN 600 MG (MOTRIN) TAB PO SCH ×2 (10:30→16:28)
--- NOTE | 2019-04-10 10:45 | NUR ---
THIS RN CALLS DR ALVARADO WITH UPDATED PT REPORT- PT WANTS IV OUT. DR ALVARADO OKAYED.
--- NOTE | 2019-04-10 13:40 | NUR ---
PT REPORT GIVEN TO BILL QUINN AT THIS TIME.
--- NOTE | 2019-04-10 13:51 | NUR ---
CM/SS spoke with the patient and her significant other (CHRISTELLE Lewis). They reported that they had all they needed for baby ie)crib, car seat, pack n play, diapers, wipes, etc. Updated facesheet information and will provide that to registration for address / phone number. Family is ok with sending referral information to [facility]. Patient reports she had WIC but missed an appointment and will have to re-establish with them. Will continue to follow.
--- NOTE | 2019-04-10 15:00 | NUR ---
UP TO THE BATHROOM. AMBULATING WITHOUT PROBLEMS. STATES IT STINGS WHEN VOIDS. USING DERMAPLAST SPRAY.
--- NOTE | 2019-04-10 16:30 | NUR ---
C/O "BUTT" HURTING. THIS RN INSPECTED AREA AND NOTED VERY SMALL HEMORRHOID AND AN ABRASION ABOVE THE URETHRAL, AND LEFT SIDE WALL. PT USING TUCKS AND DERMAPLAST. ROUTINE MOTRIN GIVEN.
--- NOTE | 2019-04-10 18:30 | NUR ---
SHOWERED WITHOUT PROBLEMS.
--- NOTE | 2019-04-10 19:30 | NUR ---
C/O LOW BACK HURTING AT EPIDURAL SITE AND ABOVE A FEW INCHES. REPORTED TO ONCOMING RN.
[2019-04-10] MEDS: DOCUSATE SODIUM 100 MG (COLACE) CAP PO SCH (20:17)
[2019-04-11 00:05] VITALS: BP 115/83
[2019-04-11] MEDS: IBUPROFEN 600 MG (MOTRIN) TAB PO SCH ×2 (00:05→09:54)
[2019-04-11 04:40] VITALS: BP 108/64
[2019-04-11 06:45] LABS: BASOPHILS % (AUTO) 0 % (0-10); EOSINOPHILS # (AUTO) 0.1 10^3/uL (0.0-0.3); EOSINOPHILS % (AUTO) 1 % (0-10); HEMATOCRIT 31 % (35-52); HEMOGLOBIN 10.5 G/DL (11.5-16.0); LYMPHOCYTES % (AUTO) 23 % (12-44); MEAN CORPUSCULAR HEMOGLOBIN 30 PG (25-34); MEAN CORPUSCULAR HGB CONC 33 G/DL (32-36); MEAN CORPUSCULAR VOLUME 91 FL (80-99); MEAN PLATELET VOLUME 10.3 FL (7.4-10.4); MONOCYTES # (AUTO) 1.5 X 10^3 (0.0-1.0); MONOCYTES % (AUTO) 8 % (0-12); NEUTROPHILS # (AUTO) 11.9 X 10^3 (1.8-7.8); NEUTROPHILS % (AUTO) 68 % (42-75); PLATELET COUNT 424 10^3/uL (130-400); RED CELL DISTRIBUTION WIDTH 13.6 % (10.0-14.5); WHITE BLOOD COUNT 17.5 10^3/uL (4.3-11.0)
--- NOTE | 2019-04-11 08:34 | Anesthesia-Regional Post-Op ---
Regional Patient Condition Mental Status: Alert, Oriented x3 Circulation: Same as Pre-Op Headache: Absent Sensation: Full Recovery Motor Block: Absent Post Op Complications Complications None Follow Up Care/Instructions Patient Instructions None needed. Anesthesia/Patient Condition Patient is doing well, no complaints, stable vital signs, no apparent adverse anesthesia problems. No complications reported per nursing. DAGMAR MARCELINO CRNA April 11, 2019 08:34
[2019-04-11 09:51] VITALS: BP 103/57
[2019-04-11] MEDS: DOCUSATE SODIUM 100 MG (COLACE) CAP PO SCH (09:54)
--- NOTE | 2019-04-11 10:05 | Discharge Summary ---
Diagnosis/Chief Complaint Date of Admission April 10, 2019 at 05:50 Date of Discharge 04/11/2019 Admission Diagnosis Admission Diagnosis Active Labor 40 Weeks gestation Discharge Diagnosis PPD #1 s/p of female @ 40.3 wga with thick meconium Discharge Summary-Simple/Stand Procedures Discharge Physical Examination Allergies: Coded Allergies: No Known Drug Allergies (Unverified , 05/15/11) Vitals & I&Os Vital Sign - Last 12Hours Date Time Temp Pulse Resp B/P (MAP) Pulse Ox O2 Delivery O2 Flow Rate FiO2 04/11/19 09:51 98.8 91 18 103/57 (72) 97 Room Air General Appearance: Alert, Oriented X3, Cooperative, No Acute Distress HEENT: Mucous Memb Moist/[place] Respiratory: Clear to Auscultation, Normal Air Movement Cardiovascular: Regular Rate, No Murmurs Abdominal: Normal Bowel Sounds, Soft, No Tenderness, Other (Fundus firm and below umbilicus) Extremities: No Edema, No Tenderness/Swelling Skin: No Rashes, No Breakdown Neuro: Normal Speech, Strength at 5/5 X4 Ext, Cranial Nerves 3-12 NL Psych/Mental Status: Mental Status NL, Mood NL Hospital Course Was the Problem List Reviewed?: Yes See final discharge diagnosis. Discussion & Recommendations 18 yo G2 now P2 del @ 40.3 wga of female over thick meconium. Infant required care in nursery with flow and antibiotics Discharge Condition at discharge stable Instructions to patient/family Please see electronic discharge instructions given to patient. Discharge Medications Reviewed and agree with Discharge Medication list on patient's Discharge Instruction sheet Clinical Quality Measures DVT/VTE Risk/Contraindication: Risk Factor Score Per Nursin RFS Level Per Nursing on Admit: 1=Low/No VTE PPX Copy Copies To 1: LUCY ALVARADO MD, HOLLY R MD April 11, 2019 10:05
--- NOTE | 2019-04-11 10:24 | Discharge Instructions ---
Discharge Inst-Women's Serv Depart Medications New, Converted or Re-Newed RX: Call to Patients Pharmacy Continued Medications: Ibuprofen (Ibuprofen) 600 Mg Tablet 600 MG PO Q6H PRN for PAIN-MILD TO MODERATE, #60 TAB 0 Refills Follow Up/Instructions Goal/Follow Up: 6 week post visit with Dr Alvarado Activity Activity: Activity as Tolerated Driving Instructions: You May Drive NO SMOKING: NO SMOKING Nothing Inside Vagina: No Douching, No Golovin, No Tampons Diet Discharge Diet: No Restrictions For Any Problems or Questions: Contact Your Physician Copies To 1: LUCY ALVARADO MD, HOLLY R MD April 11, 2019 10:24
--- NOTE | 2019-04-11 12:20 | NUR ---
Discharge instructions explained, signed and copy to patient. pt verbalized understanding and denied questions. pt requests for motrin to be called in to [facility]
--- NOTE | 2019-04-11 12:30 | NUR ---
Discharged to home. ambulates self downstairs accompanied by staff to private vehicle with belongings in hand.
== END 2019-04-11 12:30 | disposition home or self-care (01) | DRG 806 ==
LOC: WSo 05:30 → LDRP 05:31 → WSo 05:46 → LDRP 05:50
PROVIDERS: ADMIT Family Medicine; ATTEND Family Medicine
PROC: 10E0XZZ Delivery of Products of Conception, External Approach (ICD-10-PCS; principal; 2019-04-10)
DX: O77.0 Labor and delivery complicated by meconium in amniotic fluid (principal); O69.1XX0 Labor and delivery complicated by cord around neck, with compression, not applicable or unspecified; O99.354 Diseases of the nervous system complicating childbirth; G62.9 Polyneuropathy, unspecified; Z37.0 Single live birth; Z3A.40 40 weeks gestation of pregnancy
CPT/HCPCS: 36415; 85025; 86850; 86900; 86901; 99212

== ENCOUNTER 2021-05-29 17:57 | Emergency (ER) | payer MEDICAID, OTHER ==
[~2021-05-29] VITALS: Ht 155 cm; Wt 66.2 kg
--- NOTE | 2021-05-29 18:11 | ED Lower Extremity ---
General Stated Complaint: R FOOT PAIN Source: patient Exam Limitations: no limitations History of Present Illness Date Seen by Provider: May 29, 2021 Time Seen by Provider: 18:09 Initial Comments To ER with right foot pain. She stepped on off of a curb and inverted her right foot and had immediate swelling over the dorsal lateral aspect of the proximal right foot. Today the swelling has progressed. Onset: yesterday Severity: moderate Pain/Injury Location: right foot Method of Injury: fell Modifying Factors: Worse With Movement Allergies and Home Medications Allergies Coded Allergies: No Known Drug Allergies (Unverified , 05/15/11) Home Medications Ibuprofen 600 Mg Tablet, 600 MG PO Q6H PRN for PAIN-MILD TO MODERATE Prescribed by: ALOK LEE on 08/23/17 0803 Patient Home Medication List Home Medication List Reviewed: Yes Review of Systems Constitutional: see HPI EENTM: see HPI Respiratory: no symptoms reported Cardiovascular: no symptoms reported Genitourinary: no symptoms reported Musculoskeletal: see HPI Skin: no symptoms reported Psychiatric/Neurological: No Symptoms Reported Past Odxzfbw-Bwdeaw-Thpnsk Hx Patient Social History Drug of Choice: THC Type Used: Cigarettes Recent Hopitalizations: No Immunizations Up To Date Tetanus Booster (TDap): Less than 5yrs Seasonal Allergies Seasonal Allergies: No Past Medical History Surgeries: Yes Respiratory: Yes Asthma Cardiac: No Neurological: No HIV/AIDS: No Genitourinary: No Gastrointestinal: No Musculoskeletal: No Endocrine: No HEENT: No Cancer: No Psychosocial: No Integumentary: No Blood Disorders: No Family Medical History Patient reports no known family medical history. Physical Exam Vital Signs Capillary Refill : Height, Weight, BMI Height: 5'1.00" Weight: 153lbs. 12.0oz. [id number]; 29.1 BMI Method:Stated General Appearance: WD/WN, no apparent distress Respiratory: no respiratory distress, no accessory muscle use Hips: bilateral hip non-tender, bilateral hip normal inspection, bilateral hip normal range of motion Legs: bilateral leg non-tender, bilateral leg normal inspection, bilateral leg normal range of motion Knees: bilateral knee non-tender, bilateral knee normal inspection, bilateral knee normal range of motion Ankles: right ankle ecchymosis, right ankle pain, right ankle soft tissue tenderness Feet: right foot ecchymosis, right foot pain, right foot soft tissue tenderness, right foot swelling Neurologic/Psychiatric: alert, normal mood/affect, oriented x 3 Skin: normal color, warm/dry Progress/Results/Core Measures Results/Orders My Orders Orders - GENE HOWARD APRN Ankle, Right, 3 Views (05/29/21 18:08) Foot, Right, 3 View (05/29/21 18:08) Departure Impression Primary Impression: Sprain and strain of ankle Disposition: 01 HOME, SELF-CARE Condition: Stable Departure-Patient Inst. Decision time for Depature: 18:10 Referrals: ALOK LEE MD (PCP/Family) Primary Care Physician Patient Instructions: Ankle Sprain (DC) Add. Discharge Instructions: 1. Keep this wrapped for the next few days. Keep it elevated as much as possible for the next 1 week. Ice pack to the area. GENE HOWARD APRN May 29, 2021 18:11
--- NOTE | 2021-05-29 18:45 | Diagnostic Imaging Report ---
CLINICAL INDICATION: Patient rolled right ankle stepping off curb yesterday. Patient has pain and bruising on lateral side radiating into the 3rd and 5th toes. EXAMS: 1: X-ray of the right foot, 3 views. 2: X-ray of the right ankle, 3 views. COMPARISON: X-ray of the right foot dated 05/15/2011. FINDINGS: X-ray of the right foot and right ankle shows no acute fracture or dislocation. There is no significant bone or joint abnormality. Ankle mortise and syndesmotic joint is within normal limits. Subtalar joints are unremarkable. IMPRESSION: X-ray of the right ankle and right foot shows no acute fracture or dislocation. There is no significant bone or joint abnormality. Dictated by: Dictated on workstation # [id number]
[2021-05-29 19:10] VITALS: BP 116/78
== END 2021-05-29 19:10 | disposition home or self-care (01) ==
LOC: EDUNIT# 17:57 → ER 17:59
DX: S93.401A Sprain of unspecified ligament of right ankle, initial encounter (principal); J45.909 Unspecified asthma, uncomplicated; W17.89XA Other fall from one level to another, initial encounter; X50.1XXA Overexertion from prolonged static or awkward postures, initial encounter
CPT/HCPCS: 73610; 73630